=== PATIENT | male | born 1955 | race Hispanic/Latino ===

== ENCOUNTER 2019-03-31 17:38 | Observation (INO) | payer BC ==
--- OUTSIDE RECORDS SUMMARY | 2019-03-31 17:40 | XMS REPORT ---
:1955 [facility] Address [address] [place] [address] [address]. [address] [place] [address] Care Team Providers Name Role Phone Unavailable Unavailable Unavailable Problems This patient has no known problems. Allergies, Adverse Reactions, Alerts This patient has no known allergies or adverse reactions. Medications This patient has no known medications.
[2019-03-31] MEDS ORDERED: ONDANSETRON 4 MG/2 ML VIAL ONE (18:29)
[2019-03-31] MEDS ORDERED: NA CHLORIDE 0.9% 1,000 ML ONE ×2 (18:29→21:14)
[2019-03-31 18:30] LABS: Absolute Lymphocytes (CBC) 1.2 K/uL (0.7-4.9); Absolute Monocytes 0.7 K/uL (0.1-1.3); Absolute Neutrophil 8.9 K/uL (1.8-8.0); Basophils % 0.4 % (0-1.3); Eosinophils % 3.1 % (0-4.4); Hematocrit 47.8 % (39.6-49.0); MPV 9.8 fL (7.6-11.3); Monocytes % 6.5 % (3.3-12.3); RBC Red Blood Cell Count 5.22 M/uL (4.33-5.43)
[2019-03-31 18:44] LABS: Bilirubin Direct 0.2 mg/dL (0-0.2); Bilirubin Total 0.6 mg/dL (0.2-1.0); Potassium 4.4 mmol/L (3.5-5.1); Protein, Total 7.9 g/dL (6.4-8.2)
--- NOTE | 2019-03-31 19:31 | RAD REPORT ---
EXAM DESCRIPTION: CT - Abdomen Pelvis Wo Contrast - 03/31/2019 7:08 pm CLINICAL HISTORY: Abdominal pain diarrhea COMPARISON: None TECHNIQUE: Computed axial tomography of the abdomen and pelvis was obtained. IV and oral contrast we re not requested. All CT scans are performed using dose optimization technique as appropriate and may include automated exposure control or mA/KV adjustment according to patient size. FINDINGS: The evaluation of solid organs, vessels and bowel is limited secondary to the lack of con trast administration. The liver, spleen, pancreas, and adrenals appear grossly normal. Tiny bilateral nonobstructing renal calculi The appendix is normal. There is no evidence of diverticulitis. Small umbilical hernia. A small portion of small bowel protrudes through the hernia. IMPRESSION: Tiny bilateral nonobstructing renal calculi Small umbilical hernia containing a small portion of nondilated small bowel
--- NOTE | 2019-03-31 20:24 | P.HP ---
Certification for Inpatient Patient admitted to: Observation With expected LOS: <2 Midnights Practitioner: I am a practitioner with admitting privileges, knowledge of patient current condition, hospital course, and medical plan of care. Services: Services provided to patient in accordance with Admission requirements found in Title 42 Section 412.3 of the Code of Federal Regulations Patient History Date of Service: 03/31/19 Reason for admission: acute gastroenteritis, acute renal injury History of Present Illness: Mr Lan is a 63 years old male with history of DM II, HTN who start about 3 days ago with diarrhea. Later he has had nausea and vomiting as well. He also had fever episodes 100.4F at home. Despite his symptoms, he was able to keep some food and liquids down. At arrival, he was afebrile. Lab work shows leukocytosis 11.3K, Creatinine elevated 2.71. According to the patient he has not renal problems. CT abd/pelivs without acute abnormalities. Incidentally found bilateral non-obstructive kidney stones and small umbilical hernia. In ED the patient was afebrile, BP 103/67, tachycardic 103 bpm. Home medications list reviewed: Yes - Past Medical/Surgical History -: HTN -: DM II Past Surgical History: Reviewed- Non-Contributory - Family History Family History: Reviewed- Non-Contributory - Social History Smoking Status: Former smoker Alcohol use: No CD- Drugs: No Place of Residence: Home Review of Systems 10-point ROS is otherwise unremarkable Physical Examination - Physical Exam General: Alert, In no apparent distress HEENT: Atraumatic, PERRLA, Mucous membr. moist/pink, EOMI, Sclerae nonicteric Neck: Supple, 2+ carotid pulse no bruit, No LAD, Without JVD or thyroid abnormality Respiratory: Clear to auscultation bilaterally, Normal air movement Cardiovascular: Regular rate/rhythm, Normal S1 S2 Gastrointestinal: Normal bowel sounds, No tenderness Musculoskeletal: No tenderness Integumentary: No rashes Neurological: Normal speech, Normal strength at 5/5 x4 extr, Normal tone, Normal affect Lymphatics: No axilla or inguinal lymphadenopathy - Studies Laboratory Data (last 24 hrs) 03/31/19 18:22: Creatinine 2.73 H 03/31/19 18:22: WBC 11.3 H, Hgb 15.7, Hct 47.8, Plt Count 245 03/31/19 18:22: Sodium 138, Potassium 4.4, BUN 41 H, Creatinine 2.71 H, Glucose 201 H, Total Bilirubin 0.6, AST 44 H, ALT 68, Alkaline Phosphatase 113, Lipase 138 Assessment and Plan - Problems (Diagnosis) (1) Acute gastroenteritis Current Visit: Yes Status: Acute (2) Acute renal injury Current Visit: Yes Status: Acute (3) Diabetes mellitus Current Visit: Yes Status: Acute Qualifiers: Diabetes mellitus type: type 2 Diabetes mellitus alf insulin use: without rat exterminator use Diabetes mellitus complication status: with unspecified complications Qualified Code(s): E11.8 - Type 2 diabetes mellitus with unspecified complications (4) HTN (hypertension) Current Visit: Yes Status: Acute Qualifiers: Hypertension type: essential hypertension Qualified Code(s): I10 - Essential (primary) hypertension - Plan The patietn will be admitted to the hospital due to acute renal injury, likely secondary to volume depletion due to acute ganstroenteritis. Will continue with IV fluids, and symptomatic medication. Will check lab works in AM to evaluate renla function progress. - Advance Directives Does patient have a Living Will: No Does patient have a Durable POA for Healthcare: No - Code Status/Comfort Care Code Status Assessed: Yes Code Status: Full Code
--- NOTE | 2019-03-31 20:29 | ER ---
Nurse's Notes [facility] Name: Caryl Lan Sr Age: 63 yrs Sex: Male : 1955 Arrival Date: 03/31/2019 Time: 17:41 Bed 19 Private MD: Chip Larios Diagnosis: Dehydration;Vomiting;Diarrhea, unspecified;Acute Kidney Injury Presentation: 03/31 17:42 Presenting complaint: Patient states: diarrhea x 1 week and vomiting started last sv night. Denies abd pain. Transition of care: patient was not received from another setting of care. Onset of symptoms was March 24, 2019. Care prior to arrival: None. 17:42 Method Of Arrival: Ambulatory sv 17:42 Acuity: DAISHA 3 sv 17:44 Initial Sepsis Screen: Does the patient meet any 2 criteria? HR > 90 bpm. Does the sv patient have a suspected source of infection? No. Patient's initial sepsis screen is negative. 21:23 Risk Assessment: Do you want to hurt yourself or someone else? Patient reports no aj desire to harm self or others. Historical: - Allergies: 17:44 No Known Allergies; sv - PMHx: 17:44 Diabetes - NIDDM; Hypertension; sv - PSHx: 17:44 leg; sv 17:44 Knee surgery; sv - Immunization history:: Adult Immunizations up to date. - Social history:: Smoking status: Patient/guardian denies using tobacco. - Ebola Screening: : Patient negative for fever greater than or equal to 101.5 degrees Fahrenheit, and additional compatible Ebola Virus Disease symptoms Patient denies exposure to infectious person Patient denies travel to an Ebola-affected area in the 21 days before illness onset No symptoms or risks identified at this time. Screenin:25 Abuse screen: Denies threats or abuse. Denies injuries from another. Nutritional aj screening: No deficits noted. Tuberculosis screening: No symptoms or risk factors identified. Fall Risk None identified. Assessment: 18:25 General: Appears in no apparent distress. comfortable, Behavior is calm, cooperative, aj appropriate for age. Pain: Denies pain. Neuro: Level of Consciousness is awake, alert, obeys commands, Oriented to person, place, time, situation, Appropriate for age. Respiratory: Airway is patent Respiratory effort is even, unlabored, Respiratory pattern is regular, symmetrical. GI: Reports diarrhea. Derm: Skin is intact, is healthy with good turgor, Skin is pink, warm \T\ dry. normal. 21:22 Reassessment: Patient appears in no apparent distress at this time. No changes from aj previously documented assessment. Patient and/or family updated on plan of care and expected duration. Pain level reassessed. Patient is alert, oriented x 3, equal unlabored respirations, skin warm/dry/pink. Patient states feeling better. Patient states symptoms have improved. Vital Signs: 17:44 BP 103 / 67; Pulse 103; Resp 16; Temp 98.6; Pulse Ox 97% ; Weight 101.6 kg; Height 5 sv ft. 6 in. (167.64 cm); Pain 0/10; 20:05 BP 121 / 87; Pulse 87; Resp 20; Pulse Ox 97% on R/A; aj 21:22 BP 123 / 78; Pulse 79; Resp 19; Pulse Ox 99% on R/A; aj 17:44 Body Mass Index 36.15 (101.60 kg, 167.64 cm) ED Course: 17:41 Patient arrived in ED. mr 17:41 Chip Larios MD is Private Physician. mr 17:43 Triage completed. sv 17:45 Deloris Dawson, VARINDER is Primary Nurse. aj 17:45 Arm band placed on. sv 18:04 Virgilio Mendez PA is PHCP. [facility] 18:04 Jaret Farris MD is Attending Physician. [facility] 18:25 Patient has correct armband on for positive identification. 18:25 Initial lab(s) drawn, by in, sent to lab. Inserted saline lock: 18 gauge in right antecubital area, using aseptic technique. Blood collected. 19:07 CT completed. Patient tolerated procedure well. Patient moved to RI. Patient moved back mt from CT. 19:09 CT Abd/Pelvis - Without Cont In Process Unspecified. EDMS 20:29 Hayden Calderon MD is Hospitalizing Provider. [facility] 21:22 No provider procedures requiring assistance completed. Patient admitted, IV remains in place. intact. Administered Medications: 18:27 Drug: Zofran 4 mg Route: IVP; Site: right forearm; aj 19:51 Follow up: Response: No adverse reaction 18:28 Drug: NS 0.9% 1000 ml Route: IV; Rate: 1 bolus; Site: right antecubital; sedrick 21:24 Follow up: Response: No adverse reaction; IV Status: Completed infusion; IV Intake: aj 1000ml 21:04 Drug: NS 0.9% 500 ml Route: IV; Rate: bolus; Site: right antecubital; aj 21:24 Follow up: Response: No adverse reaction; IV Status: Completed infusion; IV Intake: aj 500ml Intake: 21:24 IV: 500ml; Total: 500ml. aj 21:24 IV: 1000ml; Total: 1500ml. sedrick Outcome: 20:29 Decision to Hospitalize by Provider. abdiel 21:22 Admitted to Med/surg accompanied by tech, via wheelchair, room 412, Report called to sedrick Baltazar 21:22 Condition: good 21:22 Instructed on the need for admit. 21:27 Patient left the ED. sedrick Signatures: Dispatcher [employer] Christiana Cox RN RN sv Myers, Amanda, RN RN aj Mickail, Joel, PA PA jmm Rivera, Mary mr Jordan, Nathan nj
--- NOTE | 2019-03-31 20:29 | EDPHYS ---
Physician Documentation [facility] Name: Caryl Lan Sr Age: 63 yrs Sex: Male : 1955 Arrival Date: 03/31/2019 Time: 17:41 Bed 19 Private MD: Chip Larios ED Physician Jaret Farris HPI: 03/31 18:12 This 63 yrs old Male presents to ER via Ambulatory with complaints of Diarrhea.jmm 18:12 The patient presents to the emergency department with nausea, vomiting, diarrhea. jmm Onset: The symptoms/episode began/occurred gradually, 3 day(s) ago. Possible causes: unknown. The symptoms are aggravated by nothing. The symptoms are alleviated by nothing. Associated signs and symptoms: Pertinent negatives: abdominal pain, fever. This is a 63 year old male with a history of dm, htn that presents to the ED with complaints of vomiting, diarrhea beginning 3 days ago. Patient states developing vomiting yesterday with 10 to 12 episodes of diarrhea last night. Patient states he has been unable to urinate since yesterday. . Historical: - Allergies: 17:44 No Known Allergies; sv - PMHx: 17:44 Diabetes - NIDDM; Hypertension; sv - PSHx: 17:44 leg; sv 17:44 Knee surgery; sv - Immunization history:: Adult Immunizations up to date. - Social history:: Smoking status: Patient/guardian denies using tobacco. - Ebola Screening: : Patient negative for fever greater than or equal to 101.5 degrees Fahrenheit, and additional compatible Ebola Virus Disease symptoms Patient denies exposure to infectious person Patient denies travel to an Ebola-affected area in the 21 days before illness onset No symptoms or risks identified at this time. ROS: 18:12 Constitutional: Negative for fever, chills, and weight loss, Cardiovascular: Negative jmm for chest pain, palpitations, and edema, Respiratory: Negative for shortness of breath, cough, wheezing, and pleuritic chest pain. 18:12 Abdomen/GI: Positive for vomiting, diarrhea. 18:12 All other systems are negative. Exam: 18:12 Constitutional: This is a well developed, well nourished patient who is awake, alert, jmm and in no acute distress. Head/Face: atraumatic. Eyes: EOMI, no conjunctival erythema appreciated ENT: Moist Mucus Membranes Neck: Trachea midline, Supple Chest/axilla: Normal chest wall appearance and motion. Cardiovascular: Regular rate and rhythm. No edema appreciated Respiratory: Normal respirations, no respiratory distress appreciated 18:12 Abdomen/GI: Inspection: abdomen appears normal, Bowel sounds: normal, Palpation: abdomen is soft and non-tender, in all quadrants. 18:12 Back: ROM is normal. 18:12 Musculoskeletal/extremity: ROM: intact in all extremities. 18:12 Skin: Appearance: Color: normal in color. 18:12 Neuro: Orientation: is normal, Mentation: is normal, Memory: is normal. 18:12 Psych: Behavior/mood is pleasant, cooperative. Vital Signs: 17:44 BP 103 / 67; Pulse 103; Resp 16; Temp 98.6; Pulse Ox 97% ; Weight 101.6 kg; Height 5 sv ft. 6 in. (167.64 cm); Pain 0/10; 20:05 BP 121 / 87; Pulse 87; Resp 20; Pulse Ox 97% on R/A; aj 21:22 BP 123 / 78; Pulse 79; Resp 19; Pulse Ox 99% on R/A; aj 17:44 Body Mass Index 36.15 (101.60 kg, 167.64 cm) sv MDM: 18:12 Patient medically screened. [facility] 19:50 Data reviewed: vital signs, nurses notes. Counseling: I had a detailed discussion with abdiel the patient and/or guardian regarding: the historical points, exam findings, and any diagnostic results supporting the discharge/admit diagnosis, radiology results, the need for further work-up and treatment in the hospital, to return to the emergency department if symptoms worsen or persist or if there are any questions or concerns that arise at home. ED course: I discussed the patient with Dr. Calderon whom accepted admission. Will admit the patient for observation. 03/31 18:12 Order name: Basic Metabolic Panel; Complete Time: 18:49 [facility] 03/31 18:12 Order name: CBC with Diff; Complete Time: 18:49 [facility] 03/31 18:12 Order name: Creatinine for Radiology; Complete Time: 18:49 [facility] 03/31 18:12 Order name: Hepatic Function; Complete Time: 18:49 [facility] 03/31 18:12 Order name: Lipase; Complete Time: 18:49 [facility] 03/31 18:50 Order name: CT Abd/Pelvis - Without Cont; Complete Time: 19:42 [facility] 03/31 18:12 Order name: IV Saline Lock; Complete Time: 18:27 [facility] 03/31 18:12 Order name: Labs collected and sent; Complete Time: 18:27 [facility] 03/31 20:11 Order name: Urine Dipstick-Ancillary (obtain specimen); Complete Time: 21:25 [facility] Administered Medications: 18:27 Drug: Zofran 4 mg Route: IVP; Site: right forearm; aj 19:51 Follow up: Response: No adverse reaction aj 18:28 Drug: NS 0.9% 1000 ml Route: IV; Rate: 1 bolus; Site: right antecubital; aj 21:24 Follow up: Response: No adverse reaction; IV Status: Completed infusion; IV Intake: aj 1000ml 21:04 Drug: NS 0.9% 500 ml Route: IV; Rate: bolus; Site: right antecubital; aj 21:24 Follow up: Response: No adverse reaction; IV Status: Completed infusion; IV Intake: aj 500ml Disposition: 03/31/19 20:29 Hospitalization ordered by Hayden Calderon for Observation. Preliminary diagnosis are Dehydration, Vomiting, Diarrhea, unspecified, Acute Kidney Injury. - Bed requested for Telemetry/MedSurg (observation). - Status is Observation. aj - Condition is Stable. - Problem is new. - Symptoms are unchanged. UTI on Admission? No Addendum: 04/03/2019 07:05 Co-signature as Attending Physician, Jaret Farris MD I agree with the assessment and [facility] plan of care. Signatures: Dispatcher [employer] EDMS Christiana Cantrell RN Deloris Smith RN RN aj Rittger, Kevin, MD MD kdr Mickail, Joel, PA PA [facility] Daniela Neely RN RN cg Corrections: (The following items were deleted from the chart) 03/31 20:24 19:50 ED course: I discussed the patient with Dr. Calderon whom accepted admission. [facility] States he will determine obs vs inpatient after evaluating the patient. . [facility] 20:30 20:29 Hospitalization Ordered by Hayden Calderon MD for Observation. Preliminary cg diagnosis is Dehydration; Vomiting; Diarrhea, unspecified; Acute Kidney Injury. Bed requested for Telemetry/MedSurg (observation). Status is Observation. Condition is Stable. Problem is new. Symptoms are unchanged. UTI on Admission? No. jmm 21:27 20:30 03/31/2019 20:29 Hospitalization Ordered by Hayden Calderon MD for Observation. aj Preliminary diagnosis is Dehydration; Vomiting; Diarrhea, unspecified; Acute Kidney Injury. Bed requested for Telemetry/MedSurg (observation). Status is Observation. Condition is Stable. Problem is new. Symptoms are unchanged. UTI on Admission? No. cg
[2019-03-31] MEDS ORDERED: ONDANSETRON 4 MG/2 ML VIAL IV PRN (21:43)
[2019-03-31] MEDS ORDERED: ACETAMINOPHEN 500 MG TAB PO PRN (21:43)
[2019-03-31] MEDS: INSULIN -REGULAR HUMAN 50 UNIT/0.5 ML ML SQ SCH (21:43)
[2019-03-31 22:09] VITALS: BMI 35.4
[2019-03-31] MEDS: NA CHLORIDE 0.9% 1,000 ML IV SCH (22:53)
[2019-03-31 23:03] VITALS: O2SAT 99
[2019-04-01 03:28] LABS: Absolute Lymphocytes (CBC) 1.6 K/uL (0.7-4.9); Absolute Monocytes 0.7 K/uL (0.1-1.3); Absolute Neutrophil 5.7 K/uL (1.8-8.0); Basophils % 0.5 % (0-1.3); Eosinophils % 5.4 % (0-4.4); Hematocrit 39.6 % (39.6-49.0); MPV 9.8 fL (7.6-11.3); Monocytes % 8.3 % (3.3-12.3); RBC Red Blood Cell Count 4.38 M/uL (4.33-5.43)
[2019-04-01] MEDS: INSULIN -REGULAR HUMAN 50 UNIT/0.5 ML ML SQ SCH ×4 (07:30→21:00)
[2019-04-01] MEDS: NA CHLORIDE 0.9% 1,000 ML IV SCH ×3 (08:22→21:43)
[2019-04-01] MEDS: HEPARIN 5000 UNIT/ML 1 ML VIAL SQ SCH ×3 (08:23→21:00)
[2019-04-01 10:54] LABS: Urine Appearance CLEAR; Urine Bilirubin NEGATIVE (NEG); Urine Blood NEGATIVE (NEG); Urine Color YELLOW; Urine Glucose NEGATIVE (NEG); Urine Protein NEGATIVE (NEG); Urine Specific Gravity 1.015 (1.005-1.030); Urine Urobilinogen 0.2 mg/dL (0.2-1.0)
[2019-04-01 11:01] LABS: Urine Microscopic Reflex ORDER UMIC
[2019-04-01 11:18] LABS: Urine Bacteria <20 /HPF (NONE SEEN); Urine Culture Reflex Order REFLEXED; Urine Mucus LIGHT /HPF (NONE SEEN); Urine RBC NONE SEEN /HPF (NONE SEEN)
--- NOTE | 2019-04-01 12:35 | P.PN ---
Subjective Date of Service: 04/01/19 Chief Complaint: acute gastroenteritis, acute renal injury Subjective: Improving Patient states he feels significantly better. Still having diarrhea however not as loose. Patient able to tolerate clear liquids. Pain has subsided. No further vomiting. Review of Systems 10-point ROS is otherwise unremarkable Gastrointestinal: As per HPI Physical Examination - Vital Signs Temperature: 97.4 F Blood Pressure: 104/64 Pulse: 73 Respirations: 16 Pulse Ox (%): 98 - Physical Exam General: Alert, In no apparent distress, Oriented x3, Obese, Other (Ill- appearing male) HEENT: Atraumatic, PERRLA, EOMI Neck: Supple, JVD not distended Respiratory: Clear to auscultation bilaterally, Normal air movement Cardiovascular: No edema, Normal pulses, Regular rate/rhythm, Normal S1 S2 Gastrointestinal: Normal bowel sounds, Soft and benign, Non-distended, Tenderness Musculoskeletal: No tenderness Integumentary: No rashes, No erythema, No cyanosis Neurological: Normal speech, Normal strength at 5/5 x4 extr, Normal tone, Normal affect - Studies Laboratory Data (last 24 hrs) 03/31/19 18:22: Creatinine 2.73 H 03/31/19 18:22: WBC 11.3 H, Hgb 15.7, Hct 47.8, Plt Count 245 03/31/19 18:22: Sodium 138, Potassium 4.4, BUN 41 H, Creatinine 2.71 H, Glucose 201 H, Total Bilirubin 0.6, AST 44 H, ALT 68, Alkaline Phosphatase 113, Lipase 138 Microbiology Data (last 24 hrs): C. difficile pending Imagings Data: CLINICAL HISTORY: Abdominal pain diarrhea COMPARISON: None TECHNIQUE: Computed axial tomography of the abdomen and pelvis was obtained. IV and oral contrast were not requested. All CT scans are performed using dose optimization technique as appropriate and may include automated exposure control or mA/KV adjustment according to patient size. FINDINGS: The evaluation of solid organs, vessels and bowel is limited secondary to the lack of contrast administration. The liver, spleen, pancreas, and adrenals appear grossly normal. Tiny bilateral nonobstructing renal calculi The appendix is normal. There is no evidence of diverticulitis. Small umbilical hernia. A small portion of small bowel protrudes through the hernia. IMPRESSION: Tiny bilateral nonobstructing renal calculi Small umbilical hernia containing a small portion of nondilated small bowel Medications List Reviewed: Yes Assessment And Plan - Current Problems (Diagnosis) (1) Acute gastroenteritis Current Visit: Yes Status: Acute (2) Acute kidney injury Current Visit: Yes Status: Acute (3) Nephrolithiasis Current Visit: Yes Status: Acute (4) Diabetes mellitus Current Visit: Yes Status: Acute Qualifiers: Diabetes mellitus type: type 2 Diabetes mellitus skilled nursing insulin use: without skilled nursing use Diabetes mellitus complication status: with unspecified complications Qualified Code(s): E11.8 - Type 2 diabetes mellitus with unspecified complications (5) HTN (hypertension) Current Visit: Yes Status: Acute Qualifiers: Hypertension type: essential hypertension Qualified Code(s): I10 - Essential (primary) hypertension (6) Morbid obesity due to excess calories Current Visit: Yes Status: Acute - Plan Continue IV fluid hydration. C. diff assay pending Monitor creatinine. Avoid NSAIDs Advance diet if C. diff is negative Likely Dc in the next 24 hr pending clinical improvement DVT prophylaxis Discharge Plan: Home Plan to discharge in: 24 Hours
[2019-04-01] MEDS ORDERED: GLIMEPIRIDE 2 MG PO SCH (17:00)
[2019-04-02 05:39] LABS: Potassium 3.7 mmol/L (3.5-5.1)
[2019-04-02] MEDS ORDERED: PANTOPRAZOLE 40MG TABLET PO SCH (06:30)
[2019-04-02] MEDS: INSULIN -REGULAR HUMAN 50 UNIT/0.5 ML ML SQ SCH (07:30)
[2019-04-02] MEDS ORDERED: POTASSIUM 25 MEQ EFFERV TAB PO ONE (07:48)
[2019-04-02] MEDS ORDERED: D50W 25 GM/50 ML SYRINGE IV PRN (08:02)
[2019-04-02] MEDS ORDERED: GLUCAGON 1 MG/VIAL IM PRN (08:02)
[2019-04-02] MEDS: NA CHLORIDE 0.9% 1,000 ML IV SCH (08:43)
[2019-04-02] MEDS: HEPARIN 5000 UNIT/ML 1 ML VIAL SQ SCH (08:44)
[2019-04-02 08:51] VITALS: BP 114/66; TEMP 97.8
[2019-04-02] MEDS ORDERED: MOMETASONE FUROATE NS SCH (09:00)
[2019-04-02] MEDS ORDERED: AMLODIPINE 10 MG TAB PO SCH (09:00)
--- NOTE | 2019-04-02 13:24 | P.DS ---
Admission Date: 03/31/19 Discharge Date: 04/02/19 Disposition: ROUTINE DISCHARGE Discharge Condition: GOOD Reason for Admission: acute gastroenteritis, acute renal injury - Problems (1) Acute gastroenteritis Status: Acute (2) Acute kidney injury Status: Acute (3) Nephrolithiasis Status: Acute (4) Diabetes mellitus Status: Acute Qualifiers: Diabetes mellitus type: type 2 Diabetes mellitus chcf insulin use: without chcf use Diabetes mellitus complication status: with unspecified complications Qualified Code(s): E11.8 - Type 2 diabetes mellitus with unspecified complications (5) HTN (hypertension) Status: Acute Qualifiers: Hypertension type: essential hypertension Qualified Code(s): I10 - Essential (primary) hypertension (6) Morbid obesity due to excess calories Status: Acute Brief History of Present Illness: From H&P Mr Lan is a 63 years old male with history of DM II, HTN who start about 3 days ago with diarrhea. Later he has had nausea and vomiting as well. He also had fever episodes 100.4F at home. Despite his symptoms, he was able to keep some food and liquids down. At arrival, he was afebrile. Lab work shows leukocytosis 11.3K, Creatinine elevated 2.71. According to the patient he has not renal problems. CT abd/pelivs without acute abnormalities. Incidentally found bilateral non-obstructive kidney stones and small umbilical hernia. In ED the patient was afebrile, BP 103/67, tachycardic 103 bpm. Hospital Course: Pt is a 63-year-old male with diabetes comes in with acute gastroenteritis type symptoms. Patient was started on IV fluids. He also had acute kidney injury. His cranial improved. C. diff was ruled out. Patient's symptoms improved. His diet was slowly advanced and he was able to tolerate a GI soft diet. CT scan of the abdomen did not show any acute changes. Was found to have incidental nephrolithiasis which were nonobstructing. Patient's symptoms improved he had no complications during this present. You was able to ambulate and tolerate his diet. No further nausea vomiting or diarrhea. Patient was stable for discharge. Vital Signs/Physical Exam: Temp Pulse Resp BP Pulse Ox 97.8 F 79 18 114/66 99 04/02/19 08:00 04/02/19 08:00 04/02/19 08:00 04/02/19 08:00 04/02/19 08:00 General: Alert, In no apparent distress, Oriented x3, Obese HEENT: Atraumatic, PERRLA, EOMI Neck: Supple, JVD not distended Respiratory: Clear to auscultation bilaterally, Normal air movement Cardiovascular: No edema, Normal pulses, Regular rate/rhythm, Normal S1 S2 Gastrointestinal: Normal bowel sounds, Soft and benign, Non-distended, No tenderness Musculoskeletal: No tenderness Integumentary: No rashes Neurological: Normal speech, Normal tone, Normal affect Laboratory Data at Discharge: WBC 8.5 K/uL (4.3-10.9) D 04/01/19 03:07 Hgb 13.7 g/dL (13.6-17.9) 04/01/19 03:07 Hct 39.6 % (39.6-49.0) D 04/01/19 03:07 Plt Count 187 K/uL (152-406) D 04/01/19 03:07 Sodium 145 mmol/L (136-145) 04/02/19 04:50 Potassium 3.7 mmol/L (3.5-5.1) 04/02/19 04:50 BUN 14 mg/dL (7-18) D 04/02/19 04:50 Creatinine 1.08 mg/dL (0.55-1.3) 04/02/19 04:50 Glucose 71 mg/dL (74-106) L 04/02/19 04:50 Total Bilirubin 0.6 mg/dL (0.2-1.0) 03/31/19 18:22 AST 44 U/L (15-37) H 03/31/19 18:22 ALT 68 U/L (12-78) 03/31/19 18:22 Alkaline Phosphatase 113 U/L (45-117) 03/31/19 18:22 Lipase 138 U/L (73-393) 03/31/19 18:22 Home Medications: Amlodipine [Norvasc*] 10 mg PO DAILY 04/01/19 Glimepiride 2 mg PO BIDWM 04/01/19 Liraglutide [Victoza 2-Endy] 1.8 mg SQ DAILY 04/01/19 Metformin HCl [Metformin HCl ER] 500 mg PO BID 04/01/19 Mometasone Furoate [Nasonex] 1 spray NS BID 04/01/19 Omeprazole Magnesium [Prilosec Otc] 1 tab PO DAILY 04/01/19 Ondansetron [Zofran (Odt)*] 8 mg PO Q8HR PRN 04/01/19 Patient Discharge Instructions: f/up w PCP in 2-3 days. Return to ER for worsening condition Diet: ADA
== END 2019-04-02 11:45 | disposition home or self-care (01) ==
LOC: ER 17:38 → ERHOLD 20:32 → 4TH 21:08
PROVIDERS: ADMIT Internal Medicine; ATTEND Internal Medicine
DX: K52.9 Noninfective gastroenteritis and colitis, unspecified (principal); N17.9 Acute kidney failure, unspecified; N20.0 Calculus of kidney; E11.9 Type 2 diabetes mellitus without complications; I10 Essential (primary) hypertension; E66.01 Morbid (severe) obesity due to excess calories; Z68.35 Body mass index [BMI] 35.0-35.9, adult
CPT/HCPCS: 36415; 74176; 80048; 80076; 81003; 81015; 82962; 83036; 83690; 85025; 87077; 87086; 87088; 87186; 87493; 96361; 96374; 99285; G0378; J1644; J2405; J7030

== ENCOUNTER 2021-01-18 12:23 | Emergency (ER) | payer BC, OTHER ==
--- OUTSIDE RECORDS SUMMARY | 2021-01-18 12:27 | XMS REPORT | Continuity of Care Document ---
:1955 Author Organization [facility] t Address [address] [place] [address] Care Team Providers Name Role Phone Roland Raphael DO Attending Clinician Charli Larios MD Attending Clinician Stewart ORDONEZ Attending Clinician GERARDO Attending Clinician Unavailable Problems This patient has no known problems. Allergies, Adverse Reactions, Alerts This patient has no known allergies or adverse reactions. Medications Ordered Filled Start Stop Current Ordering Indication Dosage Frequency Signature Comments Components Source Medication Medication Date Date Medication? Clinician (SIG) Name Name Tadalafil Tadalafil 2020- No Nathaly [address] [facility] 06[facility] Tamsulosin Tamsulosin 2020- No Nathaly [address] [facility] HCl HCl 06-25 [facility]00 [facility] 00 :00 l [facility] Albuterol Albuterol Yes Nathaly [address] [facility] Sulfate HFA Sulfate HFA 2-17 Espy needed [facility] - 00:[facility]: [facility] 00 l [facility] losartan losartan Yes Nathaly not [facility] defined [facility] - [facility] Glimepiride Glimepiride Yes Nathaly [address] [facility] with [facility] - breakfast Memoria or the l first main Outpati meal of ent the day Clinics Losartan Losartan Yes Nathaly 1/[address] [facility] Potassium Potassium J [facility] dailyfor [facility] - hypertensi [facility] on l Outpati ent Clinics NyQuil NyQuil Yes Nathaly not [facility] Victoza Victoza Yes Nathaly as [facility] directed [facility] Metformin Metformin Yes Nathaly [address] [facility] HCl HCl J [facility] with a [facility] - meal [facility] ent [facility]ics Zofran Zofran Yes Nathaly [address] [facility] Amlodipine Amlodipine Yes Nathaly [address] [facility] Besylate Besylate J Carlos Viola es - [facility] l Outpat[facility] ent Clinics Procedures This patient has no known procedures. Encounters Start End Encounter Admission Attending Care Care Encounter Source Date/Time Date/Time Type Type Clinicians Facility Department ID 2021-01-06 2021-01-06 [id number] 00:00:00 00:00:00 Outreach [facility] [id number] [facility] [id number] PAVILLION [id number] 2020-12-26 2020-12-[id number] 00:00:00 00:00:00 [id number] [facility] [id number] Professio [phone] [place] [address] [address] 2020-12-24 2020-12-24 [id number] 00:00:00 00:00:00 [facility] [id number] [facility] [place] [id number] Professio [phone] [place] [address] [address] 2020-12-20 2020-12-20 Refill [facility] [id number] 00:00:00 00:00:00 [facility] [id number] [facility] [place] [id number] Professio [phone] [place] [address] 2020-12-03 2020-12-03 [facility] [id number] 00:00:00 00:00:00 [facility] [id number] [facility] [place] [id number] Professio [phone] n[place] 044 [address] 2020-10-12 2020-10-12 [facility] [id number] 00:00:00 00:00:00 [facility] [id number] [place] [id number] Professio [phone] n[place] 044 [address] One 2020-10-01 2020-10-01 Outpatient [facility] [id number] [facility] St 00:00:00 00:00:[address] [facility] Outpati ent Clinics 2020-09-23 2020-09-23 Outpatient [facility] [id number] [facility] St 00:00:00 00:00:00 [facility] Outpati ent Clinics 2020-09-09 2020-09-09 [facility] [id number] 07:41:57 08:20:39 Visit [facility] [id number] [facility] [place] [id number] Professio [phone] nal 0[address] 2020-06-25 2020-06-25 [facility] [id number] 14:30:00 14:30:00 t Specialty/U Irene kes - Specialty rology [facility] l Clinic Outpati ent Clinics 2020-06-25 2020-06-25 [facility] [id number] [address] [place] [address] 00:00:00 00:00:00 [facility] [address] 2020-06-04 2020-06-04 [facility] [id number] [address] [place] [address] 00:00:00 00:00:00 [facility] [address] 2020-06-04 2020-06-04 [facility] [id number] [address] [place] [address] 00:00:00 00:00:00 [facility] [address] Results This patient has no known results.
[2021-01-18] MEDS ORDERED: ACETAMINOPHEN 500 MG TAB ONE (13:26)
--- NOTE | 2021-01-18 13:54 | RAD REPORT ---
EXAM DESCRIPTION: RAD - Chest Single View - 01/18/2021 1:31 pm CLINICAL HISTORY: SOB Chest pain. COMPARISON: Chest Pa And Lat (2 Views) dated 12/18/2018 FINDINGS: Portable technique limits examination quality. The lungs are underinflated but grossly clear. The heart is normal in size. No displaced fractures.Ri ght axillary alton dissection clips. IMPRESSION: No acute intrathoracic process suspected.
--- NOTE | 2021-01-18 14:18 | EDPHYS ---
Physician Documentation [facility] Name: Caryl Lan Sr Age: 65 yrs Sex: Male : 1955 Arrival Date: 01/18/2021 Time: 12:25 Bed 17 Private MD: Chip Larios ED Physician Ronald Chambers HPI: 01/18 13:00 This 65 yrs old Male presents to ER via Wheelchair with complaints of cp Decreased Appetite, Headache, covid+. Historical: - Allergies: 12:38 No Known Allergies; ca1 - PMHx: 12:38 Diabetes - NIDDM; Hypertension; ca1 - PSHx: 12:38 leg; Knee surgery; ca1 - Immunization history:: Pneumococcal vaccine is not up to date, Flu vaccine is up to date. - Social history:: Smoking status: Patient denies any tobacco usage or history of. ROS: 13:05 Constitutional: Positive for body aches, Negative for chills, fever, poor PO intake. cp 13:05 Eyes: Negative for injury, pain, redness, and discharge. cp 13:05 Cardiovascular: Negative for chest pain, edema, palpitations. 13:05 Respiratory: Positive for cough, with no reported sputum, Negative for shortness of breath, wheezing. 13:05 Abdomen/GI: Positive for diarrhea, Negative for abdominal pain, nausea and vomiting. 13:05 Neuro: Positive for headache, Negative for altered mental status, weakness. 13:05 All other systems are negative. Exam: 13:15 Constitutional: The patient appears in no acute distress, alert, awake, cp non-diaphoretic, non-toxic, well developed, well nourished, obese. 13:15 Head/Face: Normocephalic, atraumatic. cp 13:15 Eyes: Periorbital structures: appear normal, Conjunctiva: normal, no exudate, no injection, Sclera: no appreciated abnormality, Lids and lashes: appear normal, bilaterally. 13:15 ENT: External ear(s): are unremarkable, Nose: is normal, Mouth: Lips: moist, Oral mucosa: moist, Posterior pharynx: Airway: no evidence of obstruction, patent. 13:15 Neck: ROM/movement: is normal, is supple, no meningismus, no nuchal rigidity. 13:15 Chest/axilla: Inspection: normal, Palpation: is normal, no crepitus, no tenderness. 13:15 Cardiovascular: Rate: normal, Rhythm: regular, Edema: is not appreciated, JVD: is not appreciated. 13:15 Respiratory: the patient does not display signs of respiratory distress, Respirations: normal, no use of accessory muscles, no retractions, labored breathing, is not present, Breath sounds: are clear throughout, no decreased breath sounds, no stridor, no wheezing. 13:15 Abdomen/GI: Inspection: abdomen appears normal, Bowel sounds: active, all quadrants, Palpation: abdomen is soft and non-tender, in all quadrants. 13:15 Back: pain, is absent, ROM is normal. 13:15 Neuro: Orientation: to person, place \T\ time. Mentation: is normal, Motor: moves all fours, strength is normal. Vital Signs: 12:35 BP 108 / 66; Pulse 89; Resp 19 S; Temp 97.6(TE); Pulse Ox 98% on R/A; Weight 102.06 kg ca1 (R); Height 5 ft. 6 in. (167.64 cm) (R); Pain 6/10; 13:30 BP 125 / 64; Pulse 84; Resp 16; Pulse Ox 97% ; rb3 14:30 BP 128 / 62; Pulse 80; Resp 16; Pulse Ox 100% ; rb3 12:35 Body Mass Index 36.32 (102.06 kg, 167.64 cm) ca1 MDM: 12:39 Patient medically screened. carolyn 13:30 Differential diagnosis: bronchitis, pneumonia, sepsis, dehydration, respiratory cp distress. 14:17 Data reviewed: vital signs, nurses notes, radiologic studies, plain films. cp 14:17 Test interpretation: by ED physician or midlevel provider: plain radiologic studies. cp Counseling: I had a detailed discussion with the patient and/or guardian regarding: the historical points, exam findings, and any diagnostic results supporting the discharge/admit diagnosis, radiology results, to return to the emergency department if symptoms worsen or persist or if there are any questions or concerns that arise at home. ED course: VSS. Patient appears non-toxic and no signs of respiratory distress. Will discharge to home for continued monitoring. 01/18 13:43 Order name: Glucose, Ancillary Testing; Complete Time: 13:50 EDMS 03/20 12:59 Order name: XRAY Chest (1 view); Complete Time: 14:03 cp 01/18 12:59 Order name: Accucheck Blood Glucose; Complete Time: 15:00 cp 01/18 14:03 Order name: PO challenge; Complete Time: 15:00 cp Administered Medications: 13:13 Drug: Tylenol 1000 mg Route: PO; rb3 14:00 Follow up: Response: No adverse reaction; Pain is decreased rb3 Disposition: 01/19 01:19 Co-signature as Attending Physician, Ronald Chambers MD I agree with the assessment and [facility] plan of care. Disposition: 01/18/21 14:18 Discharged to Home. Impression: Coronavirus infection, unspecified. - Condition is Stable. - Discharge Instructions: COVID-19. - Prescriptions for Zithromax Z- Endy 250 mg Oral Tablet - take 1 tablet by ORAL route as directed for 5 days Day 1 - take two (2) tablets one time. Day 2, 3, 4 , 5 take one (1) tablet once daily.; 6 tablet. Albuterol Sulfate 90 mcg/actuation - inhale 1-2 puff by INHALATION route every 4-6 hours; 1 Inhaler. - Medication Reconciliation Form, Thank You Letter, Antibiotic Education, Prescription Opioid Use form. - Follow up: Chip Larios MD; When: 1 - 2 days; Reason: Recheck today's complaints. - Problem is new. - Symptoms have improved. Signatures: Dispatcher [employer] EDCO Ronald Chambers MD MD cha Calderon, Audri, RN RN aa5 Ronald Hernandez PA PA cp Toshia Patterson RN Caitlyn Hancock, RN RN rb3 Corrections: (The following items were deleted from the chart) 01/18 15:04 14:18 01/18/2021 14:18 Discharged to Home. Impression: Coronavirus infection, aa5 unspecified. Condition is Stable. Forms are Medication Reconciliation Form, Thank You Letter, Antibiotic Education, Prescription Opioid Use. Follow up: Chip Larios; When: 1 - 2 days; Reason: Recheck today's complaints. Problem is new. Symptoms have improved. cp
--- NOTE | 2021-01-18 14:18 | ER ---
Nurse's Notes [facility] Name: Caryl Lan Sr Age: 65 yrs Sex: Male : 1955 Arrival Date: 01/18/2021 Time: 12:25 Bed 17 Private MD: Chip Larios Diagnosis: Coronavirus infection, unspecified Presentation: 01/18 12:35 Chief complaint: Patient states: Covid+ 01/14/2021. S/S started 01/10/2021. Reports ca1 cough, congestion, fever, diarrhea, fatigue, SOB. Symptoms is getting worse. Coronavirus screen: Client reports previous positive COVID test result. Date of collection: January 14, 2021 Staff notified of need for isolation. Ebola Screen: Patient negative for fever greater than or equal to 101.5 degrees Fahrenheit, and additional compatible Ebola Virus Disease symptoms Patient denies exposure to infectious person. Patient denies travel to an Ebola-affected area in the 21 days before illness onset. No symptoms or risks identified at this time. Initial Sepsis Screen: Does the patient meet any 2 criteria? No. Patient's initial sepsis screen is negative. Does the patient have a suspected source of infection? No. Patient's initial sepsis screen is negative. Risk Assessment: Do you want to hurt yourself or someone else? Patient reports no desire to harm self or others. Onset of symptoms was January 14, 2021. 12:35 Method Of Arrival: Wheelchair ca1 12:35 Acuity: DAISHA 3 ca1 Triage Assessment: 12:50 Headache History: The patient has had previous headaches and this one is similar to rb3 previous episodes. Historical: - Allergies: 12:38 No Known Allergies; ca1 - PMHx: 12:38 Diabetes - NIDDM; Hypertension; ca1 - PSHx: 12:38 leg; Knee surgery; ca1 - Immunization history:: Pneumococcal vaccine is not up to date, Flu vaccine is up to date. - Social history:: Smoking status: Patient denies any tobacco usage or history of. Screenin:50 Abuse screen: Denies threats or abuse. Nutritional screening: decreased appetite . rb3 Tuberculosis screening: No symptoms or risk factors identified. Fall Risk None identified. Assessment: 12:50 General: Appears in no apparent distress. comfortable, Behavior is calm, cooperative, rb3 Reports fever for feeling ill for fatigue for Symptoms started on January 10, 2021. Pain: Complains of pain in bodyaches Pain currently is 5 out of 10 on a pain scale. Neuro: Level of Consciousness is awake, alert, obeys commands, Oriented to person, place, time, situation. Cardiovascular: Patient's skin is warm and dry. Respiratory: Airway is patent Respiratory effort is even, unlabored, Respiratory pattern is regular, symmetrical. Respiratory: Reports shortness of breath cough that is. GI: Reports diarrhea. : No signs and/or symptoms were reported regarding the genitourinary system. EENT: Reports nasal congestion. 12:50 Neuro: Reports headache frontal area. rb3 13:44 Reassessment: Patient appears in no apparent distress at this time. No changes from rb3 previously documented assessment. 14:40 Reassessment: Patient appears in no apparent distress at this time. Patient and/or rb3 family updated on plan of care and expected duration. Pain level reassessed. Patient is alert, oriented x 3, equal unlabored respirations, skin warm/dry/pink. 15:00 Reassessment: Patient is alert, oriented x 3, equal unlabored respirations, skin aa5 warm/dry/pink. Vital Signs: 12:35 BP 108 / 66; Pulse 89; Resp 19 S; Temp 97.6(TE); Pulse Ox 98% on R/A; Weight 102.06 kg ca1 (R); Height 5 ft. 6 in. (167.64 cm) (R); Pain 6/10; 13:30 BP 125 / 64; Pulse 84; Resp 16; Pulse Ox 97% ; rb3 14:30 BP 128 / 62; Pulse 80; Resp 16; Pulse Ox 100% ; rb3 12:35 Body Mass Index 36.32 (102.06 kg, 167.64 cm) ca1 ED Course: 12:25 Patient arrived in ED. am2 12:25 Chip Larios MD is Private Physician. am2 12:37 Triage completed. ca1 12:38 Ronald Hernandez PA is PHCP. cp 12:38 Ronald Chambers MD is Attending Physician. cp 12:38 Arm band placed on right wrist. ca1 12:50 Patient has correct armband on for positive identification. Bed in low position. Call rb3 light in reach. Side rails up X 1. Pulse ox on. NIBP on. 13:07 Caitlyn Alanis, RN is Primary Nurse. rb3 13:30 XRAY Chest (1 view) In Process Unspecified. EDMS 14:18 Chip Larios MD is Referral Physician. cp 15:00 No provider procedures requiring assistance completed. Patient did not have IV access aa5 during this emergency room visit. Administered Medications: 13:13 Drug: Tylenol 1000 mg Route: PO; rb3 14:00 Follow up: Response: No adverse reaction; Pain is decreased rb3 Outcome: 14:18 Discharge ordered by . cp 15:00 Discharged to home ambulatory. aa5 15:00 Condition: stable 15:00 Discharge instructions given to patient, Instructed on discharge instructions, follow up and referral plans. medication usage, Demonstrated understanding of instructions, follow-up care, medications, Prescriptions given X 2. 15:04 Patient left the ED. aa5 Signatures: Dispatcher [employer] EDMS Lala Green RN RN aa5 Ronald Hernandez PA PA cp Deloris Hollis am2 Toshia Patterson RN RN ca1 Caitlyn Alanis, RN RN rb3
[2021-01-18 15:08] VITALS: BP 108/66; TEMP 97.6; O2SAT 98
== END 2021-01-18 15:04 | disposition home or self-care (01) ==
LOC: ER 12:23
DX: U07.1 COVID-19 (principal); I10 Essential (primary) hypertension
CPT/HCPCS: 71045; 82947; 99284

== ENCOUNTER 2024-11-10 14:59 | Inpatient (IN) | payer OTHER ==
[2024-11-10] MEDS ORDERED: NA CHLORIDE 0.9% 3,000 ML ONE (15:45)
[2024-11-10] MEDS ORDERED: ACETAMINOPHEN 500 MG TAB ONE (15:45)
[2024-11-10 16:22] LABS: Absolute Lymphocytes (CBC) 0.4 K/uL (0.7-4.9); Absolute Monocytes 0.8 K/uL (0.1-1.3); Absolute Neutrophil 12.1 K/uL (1.8-8.0); Basophils % 0.2 % (0-1.3); Hemoglobin 11.1 g/dL (13.6-17.9); Lymphocytes % 2.8 % (15.3-44.8); MCH 30.3 pg (27.0-35.0); MCHC 33.7 g/dL (32.0-36.0); MCV 89.8 fL (80-100); MPV 9.8 fL (7.6-11.3); Monocytes % 6.2 % (3.3-12.3); Neutrophils % 90.8 % (41.7-73.7); Platelets 162 thou/uL (152-406); RBC Red Blood Cell Count 3.67 M/uL (4.33-5.43); Red Cell Distribution Width 13.7 % (12.1-15.2)
[2024-11-10 16:24] LABS: PT Prothrombin Time 12.3 SECONDS (9.4-12.5); PTT, Activated Partial Thromb 29.1 SECONDS (24.3-36.9); Protime INR 1.1
[2024-11-10 16:36] LABS: Albumin 2.9 g/dL (3.4-5.0); Albumin/Globulin Ratio 0.7 (1.1-1.8); Anion Gap 12.8 mEq/L (5.0-15.0); Bilirubin Total 0.7 mg/dL (0.2-1.0); Potassium 3.8 mEq/L (3.5-5.1); Protein, Total 6.9 g/dL (6.4-8.2)
[2024-11-10 16:43] LABS: Specific Gravity 1.024 (1.005-1.030); Sqamous Epithelial None Seen /HPF (None Seen); Urine Bacteria <20 /HPF (<20); Urine Bilirubin NEGATIVE (Negative); Urine Blood 1+ (Negative); Urine Clarity Extremely Turbid (Clear); Urine Color Yellow (Yellow); Urine Crystals Unidentified Few /HPF (None Seen); Urine Culture Reflex Order REFLEXED; Urine Glucose TRACE (Negative); Urine Ketones 2+ (Negative); Urine Microscopic Reflex YN ORDER UMIC; Urine Mucus 1+ /HPF (None Seen); Urine Nitrite NEGATIVE (Negative); Urine Protein 3+ (Negative); Urine Urobilinogen Normal (Normal); Urine WBC >50 /HPF (<5); Urine WBC Clump Occasional /HPF (None Seen); Urine Yeast (Budding) Occasional /HPF (None Seen)
[2024-11-10] MEDS ORDERED: CEFTRIAXONE 1000 MG/VIAL ONE (17:12)
[2024-11-10] MEDS ORDERED: NA CHLORIDE 0.9% 50 ML ONE (17:13)
--- NOTE | 2024-11-10 17:53 | RAD REPORT ---
EXAMINATION: CT Abdomen Pelvis W Contrast CLINICAL INDICATION: Male, 69 years old. Fever;Flank pain TECHNIQUE: CT abdomen and pelvis was performed, after the administration of IV contrast, as per [facility] protocol. Axial, sagittal and coronal reconstructions were obtained. One or more of the following dose reduction techniques were used: Automated exposure control, adjustment of the mA and k V according to patient size, and iterative reconstruction. Unless otherwise specified, incidental findings do not require dedicated imaging follow-up. COMPARISON: 03/31/2019 FINDINGS: LOWER CHEST: The visualized lung bases are clear. LIVER: Normal in size and contour. No focal lesion. BILIARY SYSTEM: No suspicious abnormalities. SPLEEN: Normal size. No focal lesion. PANCREAS: No mass, ductal dilation, or nasrin-pancreatic fluid. ADRENALS: Normal; no mass. KIDNEYS: Mild asymmetric right renal enlargement. Heterogeneous patchy hypoenhancement of the right r enal interpolar cortex anteriorly and laterally. Asymmetric right perinephric fat stranding. No hydronephrosis. Left renal interpolar 5 mL nonobstructing calculus. URINARY BLADDER: Suboptimally distended limiting evaluation. GASTROINTESTINAL TRACT: No evidence of free air, significant intra-abdominal free fluid, bowel obstru ction or abscess. APPENDIX: Normal appendix. LYMPH NODES: No lymphadenopathy. MUSCULOSKELETAL: No acute or suspicious osseous abnormality. ADDITIONAL FINDINGS: None. IMPRESSION: Heterogeneous right renal cortical hypoenhancement and asymmetric right perinephric fat stranding, co ncerning for ongoing acute pyelonephritis in the appropriate clinical setting. No evidence of obstruction. Incidentally noted left renal nonobstructing 5 mm calculus.
--- NOTE | 2024-11-10 18:12 | EDPHYS ---
Physician Documentation [facility] Name: Caryl Lan Age: 69 yrs Sex: Male : 1955 Arrival Date: 11/10/2024 Time: 14:59 Bed 17 Private MD: ED Physician Clive Yanes HPI: 11/10 16:14 This 69 yrs old Male presents to ER via Ambulatory with complaints of Low Back kb Pain, Flank Pain. 16:14 Pt is a 69 year old male who presents for fever, chills, right flank pain, hematuria, kb urinary frequency/urgency and fatigue that started one week ago. Went to today and was sent to ER for evaluation. No aggravating or alleviating factors. . Historical: - Allergies: 15:12 No Known Allergies; tm6 - PMHx: 15:12 Diabetes - NIDDM; Hypertension; tm6 - Immunization history:: Flu vaccine is not up to date. - Infectious Disease History:: Denies. - Social history:: Smoking status: Patient denies any tobacco usage or history of. ROS: 16:14 Constitutional: As per HPI kb Exam: 16:14 Constitutional: This is a well developed, well nourished patient who is awake, alert, kb and in no acute distress. Head/Face: Normocephalic, atraumatic. ENT: Moist Mucous membranes Cardiovascular: Tachycardic rate Respiratory: Respirations even and unlabored. No increased work of breathing. Talking in full sentences Abdomen/GI: Soft, non-tender. No distention Back: No spinal tenderness. No costovertebral tenderness. Full range of motion. Skin: Warm, dry with normal turgor. Normal color. MS/ Extremity: Pulses equal, no cyanosis. Neurovascular intact. Full, normal range of motion. Neuro: Awake and alert, GCS 15, oriented to person, place, time, and situation. 16:14 ECG was reviewed by the Attending Physician. Vital Signs: 15:10 BP 149 / 89; Pulse 127; Resp 19; Temp 103.3(O); Pulse Ox 96% on R/A; tm6 15:41 Weight 107.05 kg; db 16:30 BP 125 / 56; Pulse 103; Resp 24; Pulse Ox 95% ; db 17:15 BP 128 / 61; Pulse 97; Resp 20; Temp 98.9(O); Pulse Ox 95% on R/A; db 18:00 BP 135 / 61; Pulse 96; Resp 20; Pulse Ox 96% on R/A; db 20:00 BP 165 / 75; Pulse 137; Resp 18; Temp 99.9; Pulse Ox 98% ; br2 20:33 BP 169 / 89; Pulse 110; Resp 16; Pulse Ox 95% ; br2 MDM: 15:04 Medical Screening Exam initiated kb 18:10 Differential diagnosis: UTI, pyelonephritis. Data reviewed: vital signs, nurses notes. kb Consideration of Admission/Observation Patient was admitted/placed on observation. Escalation of care including admission/observation considered. Management of patient was discussed with the following: Hospitalist: Dr Smallwood accepts pt for admission. Historians other than the Patient: Spouse/Significant Other: . Counseling: I had a detailed discussion with the patient and/or guardian regarding the historical points, exam findings, and any diagnostic results supporting the discharge/admit diagnosis, lab results, radiology results, the need for further work-up and treatment in the hospital. 11/10 15:12 Order name: Blood Culture Adult (2) kb 11/10 15:12 Order name: CBC with Diff; Complete Time: 16:30 kb 11/10 15:12 Order name: CMP; Complete Time: 16:41 kb 11/10 15:12 Order name: Lactate w/ 2H reflex if indic.; Complete Time: 16:41 kb 11/10 15:12 Order name: Protime (+inr); Complete Time: 16:30 kb 11/10 15:12 Order name: Ptt, Activated; Complete Time: 16:30 kb 11/10 15:12 Order name: Urinalysis w/ reflexes; Complete Time: 16:45 kb 11/10 16:32 Order name: Glucose, Ancillary Testing; Complete Time: 16:32 EDMS 11/10 16:46 Order name: Urine Culture EDMS 11/10 18:38 Order name: CBC with Automated Diff EDMS 11/10 18:38 Order name: CBC with Automated Diff EDMS 11/10 18:38 Order name: Comprehensive Metabolic Panel EDMS 11/10 18:38 Order name: Comprehensive Metabolic Panel EDDE 11/10 15:12 Order name: CT Abd/Pelvis - IV Contrast Only; Complete Time: 17:57 kb 11/10 15:12 Order name: Accucheck; Complete Time: 16:20 kb 11/10 15:12 Order name: Cardiac monitoring; Complete Time: 16:15 kb 11/10 15:12 Order name: EKG - Nurse/Tech; Complete Time: 15:51 kb 11/10 15:12 Order name: IV Saline Lock - Large Bore; Complete Time: 16:15 kb 11/10 15:12 Order name: Labs collected and sent; Complete Time: 16:15 kb 11/10 15:12 Order name: O2 Per Protocol; Complete Time: 16:16 kb 11/10 15:12 Order name: O2 Sat Monitoring; Complete Time: 16:15 kb 11/10 15:12 Order name: Vital Signs; Complete Time: 16:16 kb 11/10 17:18 Order name: Vital Signs; Complete Time: 17:22 kb EC:14 Rate is 117 beats/min. Rhythm is regular. QRS [place] is Normal. [place] interval is normal at kb 152 msec. QRS interval is normal at 82 msec. QT interval is normal at 449 msec. Administered Medications: 15:30 Drug: Acetaminophen PO 1000 mg PO once Route: PO; db 19:11 Follow up: Response: No adverse reaction db 16:15 Drug: NS 0.9% IV (30 ml/kg) 30 ml/kg IV at bolus once; Sepsis Protocol; to be given as db a bolus over 90 minutes Route: IV; Rate: bolus; Site: right antecubital; 19:10 Follow up: Response: No adverse reaction; IV Status: Completed infusion; IV Intake: db 1000ml ; PATIENT REFUSED 1 LITER PER PROVIDER DAMIEN CHOU 17:20 Drug: Rocephin IV 1 grams IV at calculated rate once; Given slow IV push per pharmacy db instructions Route: IV; Rate: calculated rate; Site: right antecubital; 19:09 Follow up: Response: No adverse reaction; IV Status: Completed infusion; IV Intake: 50mldb 20:20 Drug: Metoprolol IVP 5 mg IVP once; Hold for SBP <100 or HR <60. Route: IVP; Site: br2 right antecubital; 21:16 Follow up: Response: No adverse reaction br2 20:20 Drug: Metoprolol PO 25 mg PO once Route: PO; br2 21:17 Follow up: Response: No adverse reaction br2 Point of Care Testing: Blood Glucose: 16:23 Blood Glucose: 157 mg/dL; db Ranges: Critical Glucose Levels:Adult <50 mg/dl or >400 mg/dl <40 mg/dl or >180 mg/dl Disposition: 20:21 I was immediately available on-site in the Emergency Department for consultation in the ms3 care of the patient. Disposition Summary: 11/10/24 18:11 Hospitalization Ordered Notes: Hospitalization Status: Inpatient Admission kb Provider: Harley Smallwood Location: Telemetry/MedSurg (Inpatient) kb Condition: Stable kb Problem: new kb Symptoms: are unchanged kb Bed/Room Type: Standard Room Assignment: 229(11/10/24 19:45) vc1 Diagnosis - Pyelonephritis acute kb - Sepsis, unspecified organism kb Forms: - Medication Reconciliation Form kb - SBAR form kb - Leadership Thank You Letter kb Signatures: Dispatcher [employer] EDMS Linda Chou, PIT SLAGMAN-C PIT SLAGMAN-Ckb Clive Yanes DO DO ms3 Zara Key, RN RN vc1 Rebekah Clark, RN RN db Sami Arriola, RN RN tm6 Jessica Billingsley RN RN br2 Corrections: (The following items were deleted from the chart) 15:12 15:12 BLOOD CULTURE*+BA.LAB.BRZ ordered. EDMS EDMS 15:12 15:12 CBC+H.LAB.BRZ ordered. EDMS EDMS 15:12 15:12 COMPREHENSIVE METABOLIC PANEL+C.LAB.BRZ ordered. EDMS EDMS 15:12 15:12 LACTATE+C.LAB.BRZ ordered. EDMS EDMS 15:12 15:12 PROTIME (+INR)+COAG.LAB.BRZ ordered. EDMS EDMS 15:12 15:12 PTT, ACTIVATED+COAG.LAB.BRZ ordered. EDMS EDMS 15:12 15:12 Urinalysis+U.LAB.BRZ ordered. EDMS EDMS 15:12 15:12 Abdomen Pelvis W Con+CT.RAD.BRZ ordered. EDMS EDMS 19:45 18:11 kb vc1
--- NOTE | 2024-11-10 18:12 | ER ---
Nurse's Notes [facility] Name: Caryl Lan Age: 69 yrs Sex: Male : 1955 Arrival Date: 11/10/2024 Time: 14:59 Bed 17 Private MD: Diagnosis: Pyelonephritis acute;Sepsis, unspecified organism Presentation: 11/10 15:11 Chief complaint: Patient states: lower back pain, chills, right flank pain x1 week, tm6 worsening. Fatigue and fever. Blood in urine on Wednesday. Coronavirus screen: Client denies travel out of the [place] in the last 14 days. Ebola Screen: Patient negative for fever greater than or equal to 101.5 degrees Fahrenheit, and additional compatible Ebola Virus Disease symptoms Patient denies exposure to infectious person. Patient denies travel to an Ebola-affected area in the 21 days before illness onset. No symptoms or risks identified at this time. Initial Sepsis Screen: Does the patient meet any 2 criteria? Temp <36.0*C (96.8*F)) or > 38.3*C (100.9*F). HR > 90 bpm. Yes Does the patient have a suspected source of infection? No. Patient's initial sepsis screen is negative. Risk Assessment: Do you want to hurt yourself or someone else? Patient reports no desire to harm self or others. Onset of symptoms was November 03, 2024. 15:11 Method Of Arrival: Ambulatory tm6 15:11 Acuity: DAISHA 3 tm6 Triage Assessment: 15:12 General: Appears uncomfortable, Behavior is calm, cooperative. Pain: Complains of pain tm6 in low back area and pelvis Pain currently is 5 out of 10 on a pain scale. EENT: No signs and/or symptoms were reported regarding the EENT system. Neuro: Level of Consciousness is awake, alert, obeys commands, Oriented to person, place, time, situation. Cardiovascular: Patient's skin is warm and dry. Respiratory: Airway is patent Respiratory effort is even, unlabored, Respiratory pattern is regular, symmetrical. GI: No signs and/or symptoms were reported involving the gastrointestinal system. Abdomen is round non-distended. : Reports pain in right in left flank(s), blood in urine. Derm: No signs and/or symptoms reported regarding the dermatologic system. Musculoskeletal: No signs and/or symptoms reported regarding the musculoskeletal system. Historical: - Allergies: 15:12 No Known Allergies; tm6 - PMHx: 15:12 Diabetes - NIDDM; Hypertension; tm6 - Immunization history:: Flu vaccine is not up to date. - Infectious Disease History:: Denies. - Social history:: Smoking status: Patient denies any tobacco usage or history of. Screenin:24 [facility] ED Fall Risk Assessment (Adult) History of falling in the last 3 months, db including since admission No falls in past 3 months (0 pts) Confusion or Disorientation No (0 pts) Intoxicated or Sedated No (0 pts) Impaired Gait No (0 pts) Mobility Assist Device Used No (0 pt) Altered Elimination No (0 pt) Score/Fall Risk Level 0 - 2 = Low Risk Oriented to surroundings, Maintained a safe environment. Abuse screen: Denies threats or abuse. Denies injuries from another. Nutritional screening: No deficits noted. Tuberculosis screening: No symptoms or risk factors identified. Assessment: 15:11 Reassessment: code sepsis. tm6 16:24 Reassessment: Patient appears in no apparent distress at this time. Patient and/or db family updated on plan of care and expected duration. Pain level reassessed. Patient is alert, oriented x 3, equal unlabored respirations, skin warm/dry/pink. General: Appears in no apparent distress. comfortable, Behavior is calm, cooperative. Neuro: Level of Consciousness is awake, alert, obeys commands, Oriented to person, place, time, situation. Respiratory: Airway is patent Respiratory effort is even, unlabored, Respiratory pattern is regular, symmetrical. : Reports BLOOD IN URINE. 16:54 Reassessment: Patient appears in no apparent distress at this time. Patient and/or db family updated on plan of care and expected duration. Pain level reassessed. Patient is alert, oriented x 3, equal unlabored respirations, skin warm/dry/pink. 18:33 Reassessment: Patient appears in no apparent distress at this time. Patient and/or db family updated on plan of care and expected duration. Pain level reassessed. Patient is alert, oriented x 3, equal unlabored respirations, skin warm/dry/pink. ADMISSION PHYSICIAN AT PATIENT BEDSIDE. 20:00 Reassessment: PT HEART RATE A 145-155 [place] NOTIFIED...PT DENIES ANY CHEST PAIN. br2 Vital Signs: 15:10 BP 149 / 89; Pulse 127; Resp 19; Temp 103.3(O); Pulse Ox 96% on R/A; tm6 15:41 Weight 107.05 kg; db 16:30 BP 125 / 56; Pulse 103; Resp 24; Pulse Ox 95% ; db 17:15 BP 128 / 61; Pulse 97; Resp 20; Temp 98.9(O); Pulse Ox 95% on R/A; db 18:00 BP 135 / 61; Pulse 96; Resp 20; Pulse Ox 96% on R/A; db 20:00 BP 165 / 75; Pulse 137; Resp 18; Temp 99.9; Pulse Ox 98% ; br2 20:33 BP 169 / 89; Pulse 110; Resp 16; Pulse Ox 95% ; br2 ED Course: 15:03 Patient arrived in ED. ra3 15:04 Linda Chou FNP-C is [facility]. kb 15:04 Clive Yanes DO is Attending Physician. kb 15:12 Triage completed. tm6 15:12 Arm band placed on right wrist. tm6 15:41 Rebekah Clark, RN is Primary Nurse. db 15:[address] db 15:51 EKG done, by ED staff, reviewed by Linda CALVILLO. tm6 16:00 Missed attempt(s): 20 gauge Bleeding controlled, band aid applied, catheter tip intact. ty 16:07 Initial lab(s) drawn, by me, sent to lab. First set of blood cultures drawn by me. ty Inserted saline lock: 20 gauge in right antecubital area, using aseptic technique. Blood collected. Flushed with 10 mL NS. 16:19 Second set of blood cultures drawn by me. ty 16:20 Blood Culture Adult (2) Sent. ty 16:20 CBC with Diff Sent. ty 16:20 CMP Sent. ty 16:20 Lactate w/ 2H reflex if indic. Sent. ty 16:21 Protime (+inr) Sent. ty 16:21 Ptt, Activated Sent. ty 16:21 Urinalysis w/ reflexes Sent. ty 16:23 Patient has correct armband on for positive identification. Placed in gown. Bed in low db position. Call light in reach. Side rails up X2. Client placed on continuous cardiac and pulse oximetry monitoring. NIBP monitoring applied. shelter monitor on. Pulse ox on. NIBP on. Warm blanket given. Pillow given. 17:01 CT Abd/Pelvis - IV Contrast Only In Process Unspecified. EDMS 17:22 No provider procedures requiring assistance completed. db 18:11 Harley Smallwood MD is Hospitalizing Provider. kb 19:42 Jessica Billingsley, VARINDER is Primary Nurse. br2 21:18 Patient admitted, IV remains in place. br2 Administered Medications: 15:30 Drug: Acetaminophen PO 1000 mg PO once Route: PO; db 19:11 Follow up: Response: No adverse reaction db 16:15 Drug: NS 0.9% IV (30 ml/kg) 30 ml/kg IV at bolus once; Sepsis Protocol; to be given as db a bolus over 90 minutes Route: IV; Rate: bolus; Site: right antecubital; 19:10 Follow up: Response: No adverse reaction; IV Status: Completed infusion; IV Intake: db 1000ml ; PATIENT REFUSED 1 LITER PER PROVIDER DAMIEN CHOU 17:20 Drug: Rocephin IV 1 grams IV at calculated rate once; Given slow IV push per pharmacy db instructions Route: IV; Rate: calculated rate; Site: right antecubital; 19:09 Follow up: Response: No adverse reaction; IV Status: Completed infusion; IV Intake: 50mldb 20:20 Drug: Metoprolol IVP 5 mg IVP once; Hold for SBP <100 or HR <60. Route: IVP; Site: br2 right antecubital; 21:16 Follow up: Response: No adverse reaction br2 20:20 Drug: Metoprolol PO 25 mg PO once Route: PO; br2 21:17 Follow up: Response: No adverse reaction br2 Medication: 16:24 VIS not applicable for this client. db Point of Care Testing: Blood Glucose: 16:23 Blood Glucose: 157 mg/dL; db Ranges: Intake: 19:09 IV: 50ml; Total: 50ml. db 19:10 IV: 1000ml; Total: 1050ml. db Outcome: 18:11 Decision to Hospitalize by Provider. kb 21:18 Admitted to Med/surg accompanied by tech, via stretcher, room 229, br2 21:18 Condition: stable 21:18 Instructed on the need for admit, Demonstrated understanding of instructions, 21:19 Patient left the ED. br2 Signatures: Dispatcher [employer] EDMS Linda Chou, GUEST RELATIONS MANAGER-C GUEST RELATIONS MANAGER-Rebekah Burks, RN RN db Sami Arriola RN RN patience6 Lani Cedeno ra3 Volodymyr Puentes Belinda RN RN br2 Corrections: (The following items were deleted from the chart) 16:24 16:23 No provider procedures requiring assistance completed. db db 16: 16:23 Patient admitted, IV remains in place. db db 16:24 16:23 Admitted to Med/surg room 216, db db 16:24 16:23 Condition: stable db db 16:24 16:23 Instructed on the need for admit, db db 16:25 16:23 Provided Education on: db db
[2024-11-10] MEDS ORDERED: D10W 125 ML IV PRN (18:34)
[2024-11-10] MEDS ORDERED: MORPHINE 4 MG/ML SYR IV PRN (18:34)
[2024-11-10] MEDS ORDERED: ONDANSETRON 4 MG/2 ML VIAL IV PRN (18:34)
[2024-11-10] MEDS ORDERED: GLUCAGON 1 MG/VIAL IM PRN (18:34)
--- NOTE | 2024-11-10 18:43 | P.HP ---
Certification for Inpatient With expected LOS: >2 Midnights Practitioner: I am a practitioner with admitting privileges, knowledge of patient current condition, hospital course, and medical plan of care. Services: Services provided to patient in accordance with Admission requirements found in Title 42 Section 412.3 of the Code of Federal Regulations Patient History Date of Service: 11/10/24 Reason for admission: Acute pyelonephritis History of Present Illness: Patient is 69 years of age admitted with 1 week onset of sided flank pain hematuria fever chills admitted with right-sided pyelonephritis no prior history of urinary tract problems Allergies No Known Allergies Allergy (Verified 03/31/19 21:43) Home Medications: Amlodipine [Norvasc*] 10 mg PO DAILY 04/01/19 Glimepiride 2 mg PO BIDWM 04/01/19 Liraglutide [Victoza 2-Endy] 1.8 mg SQ DAILY 04/01/19 Metformin HCl [Metformin HCl ER] 500 mg PO BID 04/01/19 Mometasone Furoate [Nasonex] 1 spray NS BID 04/01/19 Omeprazole Magnesium [Prilosec Otc] 1 tab PO DAILY 04/01/19 Ondansetron [Zofran (Odt)*] 8 mg PO Q8HR PRN 04/01/19 - Past Medical/Surgical History Diabetic: Yes -: HTN -: DM II -: gerd -: right foot reattatchment -: left knee surgery - Family History Mother -: Diabetes, Other (see notes) Notes: cva Father -: Cancer Notes: esophageal - Social History Alcohol use: Yes CD- Drugs: No Caffeine use: Yes Review of Systems 10-point ROS is otherwise unremarkable Physical Examination - Vital Signs Temperature: 103 F Blood Pressure: 135/61 Pulse: 27 Respirations: 14 Pulse Ox (%): 100 - Physical Exam General: Alert, Oriented x3 Respiratory: Clear to auscultation bilaterally, Normal air movement Cardiovascular: No edema, Regular rate/rhythm Gastrointestinal: Normal bowel sounds, Soft and benign, Other (Right-sided flank pain) Musculoskeletal: No clubbing, No swelling Integumentary: No rashes, No breakdown - Studies Laboratory Data (last 24 hrs) 11/10/24 11/10/24 11/10/24 16:07 16:07 16:07 WBC 13.40 H Hgb 11.1 L Hct 33.0 L Plt Count 162 PT 12.3 INR 1.10 APTT 29.1 Sodium 133 L Potassium 3.8 BUN 21 H Creatinine 1.26 Glucose 165 H Total Bilirubin 0.7 AST 11 L ALT 22 Alkaline Phosphatase 92 Assessment and Plan - Problems (Diagnosis) (1) Acute pyelonephritis Current Visit: Yes Status: Acute Plan: Patient is 69 years of age admitted with acute onset of right-sided pyelonephritis history he is has diabetes and hypertension has had surgeries on his legs currently is on disability labs all reviewed mildly elevated white count mildly anemic with evidence of urinary tract infection right flank tenderness T scan Heterogeneous right renal cortical hypoenhancement and asymmetric right perinephric fat stranding, concerning for ongoing acute pyelonephritis in the appropriate clinical setting. No evidence of obstruction. Incidentally noted left renal nonobstructing 5 mm calculus. To admit start patient on Rocephin (2) Atrial fibrillation Current Visit: Yes Status: Acute Plan: Patient admitted with new onset of A-fib will order a 2D echocardiogram cardiology consult start on metoprolol and Lovenox Qualifiers: Atrial fibrillation type: paroxysmal Qualified Code(s): I48.0 - Paroxysmal atrial fibrillation - Advance Directives Does patient have a Living Will: No Does patient have a Durable POA for Healthcare: No
[2024-11-10] MEDS: NA CHLORIDE 0.9% 1,000 ML IV SCH (19:00)
[2024-11-10] MEDS ORDERED: METOPROLOL TAR 25 MG TAB ONE (20:24)
[2024-11-10] MEDS ORDERED: METOPROLOL TARTRATE 5 MG/5 ML INJ IV ONE (20:24)
[2024-11-10] MEDS: INSULIN REGULAR (HUMAN) 100 UNIT/ML SQ SCH (21:00)
[2024-11-10 21:53] VITALS: O2SAT 95
[2024-11-10 22:12] VITALS: BMI 38.0
[2024-11-10] MEDS: ENOXAPARIN 100 MG/ML SYR SQ ONE (22:28)
[2024-11-11 05:24] LABS: Absolute Lymphocytes (CBC) 0.4 K/uL (0.7-4.9); Absolute Monocytes 0.9 K/uL (0.1-1.3); Absolute Neutrophil 10.1 K/uL (1.8-8.0); Basophils % 0.2 % (0-1.3); Hematocrit 29.7 % (39.6-49.0); Hemoglobin 10.2 g/dL (13.6-17.9); Lymphocytes % 3.4 % (15.3-44.8); MCH 31.1 pg (27.0-35.0); MCHC 34.4 g/dL (32.0-36.0); MCV 90.3 fL (80-100); MPV 9.6 fL (7.6-11.3); Monocytes % 8.1 % (3.3-12.3); Neutrophils % 88.3 % (41.7-73.7); Platelets 131 thou/uL (152-406); RBC Red Blood Cell Count 3.29 M/uL (4.33-5.43); Red Cell Distribution Width 13.2 % (12.1-15.2)
[2024-11-11 05:41] LABS: Albumin 2.3 g/dL (3.4-5.0); Albumin/Globulin Ratio 0.6 (1.1-1.8); Anion Gap 11.6 mEq/L (5.0-15.0); Bilirubin Total 0.7 mg/dL (0.2-1.0); Globulin 3.6 g/dL (2.3-3.5); Potassium 3.6 mEq/L (3.5-5.1); Protein, Total 5.9 g/dL (6.4-8.2)
[2024-11-11 08:36] LABS: Blood Morphology Comment NOT SEEN (NOT SEEN); Platelet Estimate ADEQ; White Blood Cell Scan OK (OK)
[2024-11-11] MEDS: ENOXAPARIN 100 MG/ML SYR SQ SCH (09:04)
[2024-11-11] MEDS: CEFTRIAXONE 1,000 MG in NA CHLORIDE 0.9% 50 ML IVPB SCH (09:04)
[2024-11-11] MEDS: VANCOMYCIN 1 GM in NA CHLORIDE 0.9% 250 ML IVPB SCH (16:01)
[2024-11-11] MEDS: ACETAMINOPHEN 325 MG TABLET PO PRN (16:48)
[2024-11-11] MEDS: VANCOMYCIN 2 GM in NA CHLORIDE 0.9% 500 ML IVPB SCH (17:00)
--- NOTE | 2024-11-11 18:50 | P.PN ---
Subjective Date of Service: 11/11/24 Chief Complaint: Acute pyelonephritis Patient complaining of headache. Patient also had fever today and developed tachycardia. He has been also experiencing paroxysmal atrial fibrillation since last night. Physical Examination - Vital Signs Temperature: 102 F Blood Pressure: 147/65 Pulse: 109 Respirations: 18 Pulse Ox (%): 96 Assessment And Plan - Plan Physical examination General: Alert and oriented x3, NAD, HEENT: Conjunctiva not pale, anicteric sclera Neck: Supple, no elevated JVD Heart: Heart sounds 1 and 2 normal, regular rhythm, tachycardia, no pedal edema, good capillary refill. Lungs: Clear to auscultation bilaterally, adequate breath sounds bilaterally, no rhonchi or crackles. Abdomen: Soft, nondistended, nontender, normal bowel sounds. Extremities: No tenderness, no deformity Skin: Normal skin turgor, no rash, no nodules or ulcers. Neuro: No focal motor deficit. Normal speech. Psychiatry: Normal mood, no agitation. Assessment and plan Complicated UTI Sepsis Gram-negative bacteremia Patient with persistent fever on IV Rocephin. IV Rocephin changed to IV cefepime Follow urine culture and blood cultures for organism identification and sensitivity IV hydration. Diet as tolerated. Paroxysmal atrial fibrillation Patient is currently in sinus rhythm heart goes in and out of A-fib. Metoprolol as needed for rapid heart rate. Patient started on Lovenox anticoagulation Cardiology consult. BPH Patient reports history of urinary retention. He states that he is supposed to follow-up with Dr. Mueller for ultrasound of his prostate as part of evaluation for prostate surgery. Resume home dose Flomax Monitor for urinary retention. Hypertension Hold antihypertensives for now given sepsis Monitor BP. Anemia Monitor and transfuse for hemoglobin less than 7. DVT prophylaxis: Patient is on full dose Lovenox Advanced directive: Full code.
[2024-11-11] MEDS ORDERED: VANCOMYCIN 2 GM in NA CHLORIDE 0.9% 500 ML IVPB SCH (19:00)
[2024-11-11] MEDS: VANCOMYCIN 1 GM/VIAL ONE (20:09)
[2024-11-11] MEDS: NA CHLORIDE 0.9% 250 ML ONE (20:10)
[2024-11-11] MEDS: TAMSULOSIN 0.4 MG SR CAP PO SCH (20:26)
[2024-11-11] MEDS: CEFEPIME 2 GM in NA CHLORIDE 0.9% 100 ML IV SCH (20:27)
[2024-11-11] MEDS: MOMETASONE FUROATE PUMP NS SCH (21:00)
[2024-11-12 05:11] LABS: Absolute Lymphocytes (CBC) 0.9 K/uL (0.7-4.9); Absolute Neutrophil 7.4 K/uL (1.8-8.0); Basophils % 0.3 % (0-1.3); Eosinophils % 0.4 % (0-4.4); Hematocrit 30.2 % (39.6-49.0); Hemoglobin 10.7 g/dL (13.6-17.9); Lymphocytes % 9.7 % (15.3-44.8); MCH 31.6 pg (27.0-35.0); MCHC 35.3 g/dL (32.0-36.0); MCV 89.6 fL (80-100); MPV 9.4 fL (7.6-11.3); Monocytes % 10.2 % (3.3-12.3); Neutrophils % 79.4 % (41.7-73.7); Platelets 146 thou/uL (152-406); RBC Red Blood Cell Count 3.37 M/uL (4.33-5.43); Red Cell Distribution Width 13.5 % (12.1-15.2)
[2024-11-12 05:36] LABS: Anion Gap 10.6 mEq/L (5.0-15.0); Potassium 3.6 mEq/L (3.5-5.1)
[2024-11-12] MEDS: ASPIRIN 81 MG CHEWABLE TABLET PO SCH (08:58)
[2024-11-12] MEDS: PANTOPRAZOLE 40MG TABLET PO SCH (08:58)
[2024-11-12] MEDS: AMLODIPINE 10 MG TAB PO SCH (11:40)
--- NOTE | 2024-11-12 12:44 | P.CNS ---
Date of Consult: 11/12/24 Chief Complaint: Acute pyelonephritis History of Present Illness: Patient with PMH of HTN, DM presented with UTI, Sepsis, deneis having any cardiac symptoms, cardiology was consulted as tele was showing patient going into intermittent AF, patient denies such diagnosis in the past. Allergies No Known Allergies Allergy (Verified 03/31/19 21:43) Home medications list reviewed: Yes Home Medications: Amlodipine [Norvasc*] 5 mg PO DAILY 04/01/19 Glimepiride 2 mg PO BIDWM 04/01/19 Liraglutide [Victoza 2-Endy] 1.8 mg SQ DAILY 04/01/19 Metformin HCl [Metformin HCl ER] 500 mg PO BID 04/01/19 Mometasone Furoate [Nasonex] 1 spray NS BID 04/01/19 Omeprazole Magnesium [Prilosec Otc] 1 tab PO DAILY 04/01/19 Ondansetron [Zofran (Odt)*] 8 mg PO Q8HR PRN 04/01/19 Aspirin 81 mg PO DAILY 11/10/24 Atorvastatin Calcium [Lipitor] 20 mg PO BEDTIME 11/10/24 Celecoxib [Celebrex] 200 mg PO BID 11/10/24 Losartan Potassium 100 mg PO BID 11/10/24 Pioglitazone HCl/Glimepiride [Duetact 30-4 mg Tablet] 30 mg PO DAILY 11/10/24 Tamsulosin [Flomax*] 0.4 mg PO BID 11/10/24 tadalafiL [Tadalafil] 20 mg PO DAILY 11/10/24 - Past Medical/Surgical History Diabetic: Yes -: HTN -: DM II -: gerd -: right foot reattatchment -: left knee surgery - Family History Mother Medical History: Diabetes, Other (see notes) Notes: cva Father Medical History: Cancer Notes: esophageal - Social History Alcohol use: Yes CD- Drugs: No Caffeine use: Yes Place of Residence: Home Review of Systems 10-point ROS is otherwise unremarkable Physical Examination Temp Pulse Resp BP Pulse Ox 98.0 F 76 16 139/70 98 11/12/24 08:00 11/12/24 11:40 11/12/24 08:00 11/12/24 08:00 11/12/24 08:00 General: Alert, In no apparent distress HEENT: Atraumatic, PERRLA, Mucous membr. moist/pink, EOMI, Sclerae nonicteric Neck: Supple, 2+ carotid pulse no bruit, No LAD, Without JVD or thyroid abnormality Respiratory: Clear to auscultation bilaterally, Normal air movement Cardiovascular: Regular rate/rhythm, Normal S1 S2 Gastrointestinal: Normal bowel sounds, No tenderness Musculoskeletal: No tenderness Integumentary: No rashes Neurological: Normal gait, Normal speech, Normal tone, Normal affect Lymphatics: No axilla or inguinal lymphadenopathy - Problems (1) Atrial fibrillation Current Visit: Yes Status: Acute Plan: most likely new onset secondary to acute illness. start patient on scheduled Metoprolol 25 mg po BID Agree with therapeutic lovenox, Will need to switch to Eliquis 5 mg po BID on discharge. Qualifiers: Atrial fibrillation type: paroxysmal Qualified Code(s): I48.0 - Paroxysmal atrial fibrillation
--- NOTE | 2024-11-12 15:25 | P.PN ---
Subjective Date of Service: 11/12/24 Chief Complaint: Acute pyelonephritis Patient states he feels better today. Patient had intermittent fever yesterday. No fever recorded today. He has been also experiencing paroxysmal atrial fibrillation. Physical Examination - Vital Signs Temperature: 98.0 F Blood Pressure: 147/73 Pulse: 93 Respirations: 14 Pulse Ox (%): 97 - Studies Microbiology Data (last 24 hrs): 11/10/24 16:18 Clean Catch Urine [place] Count - Final >100,000 CFU/ML. 11/10/24 16:18 Clean Catch Urine - Final Escherichia Coli 11/10/24 16:18 Blood - Blood Blood Culture Gram Stain - Final Assessment And Plan - Plan Physical examination General: Alert and oriented x3, NAD, HEENT: Anicteric sclera Neck: Supple, no elevated JVD Heart: Heart sounds 1 and 2 normal, regular rhythm, tachycardia, no pedal edema, good capillary refill. Lungs: Clear to auscultation bilaterally, adequate breath sounds bilaterally, no rhonchi or crackles. Abdomen: Soft, nondistended, nontender, normal bowel sounds. Extremities: No tenderness, no deformity Skin: Normal skin turgor, no rash, no nodules or ulcers. Neuro: No focal motor deficit. Normal speech. Psychiatry: Normal mood, no agitation. Assessment and plan Complicated E. coli UTI Sepsis Gram-negative bacteremia Patient with persistent fever on IV Rocephin. He defervesced with IV cefepime. Urine culture growing pansensitive E. coli. Blood culture organism identification is pending. Continue IV cefepime. Continue IV NS. Repeat blood culture. Diet as tolerated. Paroxysmal atrial fibrillation Patient is currently in sinus rhythm heart. He goes in and out of A-fib. Continue metoprolol and Lovenox anticoagulated Cardiology input appreciated. BPH Patient reports history of urinary retention. He states that he is supposed to follow-up with Dr. Mueller for ultrasound of his prostate as part of evaluation for prostate surgery. Continue Flomax. Monitor for urinary retention. Hypertension Patient is currently hypertensive. Resume home antihypertensives. Anemia Monitor and transfuse for hemoglobin less than 7. DM type II Hold metformin and glimepiride Manage blood sugar with insulin sliding scale. Hyponatremia Continue IV NS DVT prophylaxis: Patient is on full dose Lovenox Advanced directive: Full code.
[2024-11-12] MEDS: ATORVASTATIN 20 MG TAB PO SCH (22:06)
[2024-11-12] MEDS: LOSARTAN POTASSIUM 50 MG TABLET PO SCH (22:06)
[2024-11-13 04:46] LABS: Hematocrit 28.6 % (39.6-49.0); MCV 90.5 fL (80-100)
[2024-11-13 04:50] LABS: Absolute Eosinophils 0.1 K/uL (0-0.5); Absolute Lymphocytes (CBC) 0.8 K/uL (0.7-4.9); Absolute Monocytes 0.7 K/uL (0.1-1.3); Absolute Neutrophil 5.1 K/uL (1.8-8.0); Basophils % 0.3 % (0-1.3); Hemoglobin 9.7 g/dL (13.6-17.9); Lymphocytes % 11.6 % (15.3-44.8); MCH 30.6 pg (27.0-35.0); MCHC 33.7 g/dL (32.0-36.0); MPV 9.5 fL (7.6-11.3); Monocytes % 10.3 % (3.3-12.3); Neutrophils % 75.8 % (41.7-73.7); Platelets 142 thou/uL (152-406); RBC Red Blood Cell Count 3.16 M/uL (4.33-5.43); Red Cell Distribution Width 13.6 % (12.1-15.2)
[2024-11-13 04:54] LABS: Anion Gap 8.4 mEq/L (5.0-15.0); Potassium 3.4 mEq/L (3.5-5.1)
[2024-11-13] MEDS: PNEUMOCOCCAL VACCINE 0.5 ML IMVAC ONE (08:00)
[2024-11-13] MEDS ORDERED: GLIMEPIRIDE 2 MG TABLET PO SCH (09:00)
--- NOTE | 2024-11-13 10:07 | P.PN ---
Subjective Date of Service: 11/13/24 Chief Complaint: Acute pyelonephritis Subjective: No new changes, No C/O voiced, Tolerating diet, Ambulating, Improving Review of Systems 10-point ROS is otherwise unremarkable Physical Examination - Vital Signs Temperature: 98.2 F Blood Pressure: 144/72 Pulse: 85 Respirations: 18 Pulse Ox (%): 97 - Physical Exam General: Alert, In no apparent distress HEENT: Atraumatic, PERRLA, EOMI Neck: Supple, JVD not distended Respiratory: Clear to auscultation bilaterally, Normal air movement Cardiovascular: Regular rate/rhythm, Normal S1 S2 Gastrointestinal: Normal bowel sounds, No tenderness Musculoskeletal: No tenderness Integumentary: No rashes Neurological: Normal speech, Normal tone, Normal affect Lymphatics: No axilla or inguinal lymphadenopathy - Studies Microbiology Data (last 24 hrs): 11/10/24 16:18 Blood - Blood Blood Culture Gram Stain - Final 11/10/24 16:18 Clean Catch Urine [place] Count - Final >100,000 CFU/ML. 11/10/24 16:18 Clean Catch Urine - Final Escherichia Coli Medications List Reviewed: Yes Assessment And Plan - Current Problems (Diagnosis) (1) Atrial fibrillation Current Visit: Yes Status: Acute Plan: most likely new onset secondary to acute illness. start patient on Metoprolol 25 mg po BID Agree with therapeutic lovenox, Will need to switch to Eliquis 5 mg po BID on discharge. outpatient follow up with cardiology. Qualifiers: Atrial fibrillation type: paroxysmal Qualified Code(s): I48.0 - Paroxysmal atrial fibrillation
--- NOTE | 2024-11-13 10:50 | EKG ---
Test Date: 2024-11-10 Test Time: 15:44:52 Inpatient Care Manager Rn: JULIA MEASUREMENT RESULTS: Intervals: Rate: 117 GA: 152 QRSD: 82 QT: 322 QTc: 449 [place]: P: 36 GA: 152 QRS: -8 T: 41 INTERPRETIVE STATEMENTS: Sinus tachycardia Otherwise normal ECG Compared to ECG 02/11/2007 12:49:56 Sinus rhythm no longer present Electronically Signed On 11-13-24 10:49:48 CAR PORTER by Robert Benítez
[2024-11-13] MEDS: PIOGLITAZONE 15 MG TAB PO SCH (12:14)
--- NOTE | 2024-11-13 13:27 | ECHO ---
HEIGHT: 5 ft 6 in WEIGHT: 236 lb 0 oz DATE OF STUDY: 11/13/[address]: Harley Smallwood MD 2-DIMENSIONAL: YES M.MODE: YES DOPPLER: YES COLOR FLOW: YES TDS: NO PORTABLE: YES DEFINITY: NO BUBBLE STUDY: NO DIAGNOSIS: NEW ONSET ATRIAL FIBRILLATION CARDIAC HISTORY: CATHERIZATION: SURGERY: PROSTHETIC VALVE: PACEMAKER: MEASUREMENTS (cm) DIASTOLIC (NORMALS) SYSTOLIC (NORMALS) IVSd 1.2 (0.6-1.2) LA Diam 4.3 (1.9-4.0) LVEF 69% LVIDd 5.3 (3.5-5.7) LVIDs 3.2 (2.0-3.5) %FS 39% LVPWd 1.3 (0.6-1.2) Ao Diam 2.9 (2.0-3.7) 2 DIMENSIONAL ASSESSMENT: RIGHT ATRIUM: NORMAL LEFT ATRIUM: NORMAL RIGHT VENTRICLE: NORMAL LEFT VENTRICLE: NORMAL TRICUSPID VALVE: TRACE OF TRICUSPID REGURGITATION MITRAL VALVE: NORMAL PULMONIC VALVE: NORMAL AORTIC VALVE: NORMAL PERICARDIAL EFFUSION: NONE AORTIC ROOT: NORMAL LEFT VENTRICULAR WALL MOTION: NORMAL. DOPPLER/COLOR FLOW: NORMAL. COMMENTS: 1. NORMAL LEFT VENTRICULAR SYSTOLIC FUNCTION, EJECTION FRACTION 60-65%, NORMAL WALL MOTION. 2. NORMAL DIASTOLIC FUNCTION. 3. MILD ELEVATED FILLING PRESSURE (RIGHT ATRIUM 10-15mmHg) TECHNOLOGIST: CARIE COMBS
[2024-11-13] MEDS: levoFLOXacin 750 MG TAB PO SCH (13:31)
--- NOTE | 2024-11-13 17:28 | P.PN ---
Subjective Date of Service: 11/13/24 Chief Complaint: Acute pyelonephritis Patient denies any new complaint. He has been afebrile. No fever over the past 24 hours Physical Examination - Vital Signs Temperature: 98.0 F Blood Pressure: 138/67 Pulse: 84 Respirations: 18 Pulse Ox (%): 98 - Studies Microbiology Data (last 24 hrs): 11/10/24 16:18 Blood - Blood Blood Culture Gram Stain - Final Medications List Reviewed: Yes Assessment And Plan - Plan Physical examination General: Alert and oriented x3, NAD, HEENT: Anicteric sclera Neck: Supple, no elevated JVD Heart: Heart sounds 1 and 2 normal, regular rhythm, tachycardia, no pedal edema, good capillary refill. Lungs: Clear to auscultation bilaterally, adequate breath sounds bilaterally, no rhonchi or crackles. Abdomen: Soft, nondistended, nontender, normal bowel sounds. Extremities: No tenderness, no deformity Skin: Normal skin turgor, no rash, no nodules or ulcers. Neuro: No focal motor deficit. Normal speech. Psychiatry: Normal mood, no agitation. Assessment and plan Complicated E. coli UTI Sepsis Gram-negative bacteremia Patient with persistent fever on IV Rocephin. He defervesced with IV cefepime. Urine culture growing pansensitive E. coli. Blood culture organism identification is pending. Continue IV cefepime. Discontinue IV fluid Repeat blood culture shows no growth Infectious disease Dr. Lantigua consulted to assist with outpatient antibiotic therapy. Paroxysmal atrial fibrillation Patient is currently in sinus rhythm heart. He goes in and out of A-fib. Echocardiogram is unremarkable. Continue metoprolol and Lovenox anticoagulated. Transition Lovenox to Eliquis. Cardiology Dr. Benítez input appreciated. Outpatient cardiology follow-up recommended. BPH Patient reports history of urinary retention. He states that he is supposed to follow-up with Dr. Mueller for ultrasound of his prostate as part of evaluation for prostate surgery. Continue Flomax. Patient is voiding without difficulty. Hypertension Stable Continue home antihypertensives. Anemia Monitor and transfuse for hemoglobin less than 7. DM type II Hold metformin and glimepiride Manage blood sugar with insulin sliding scale. Home dose Actos resumed Hyponatremia Resolved. Discontinue IV NS DVT prophylaxis: Eliquis. Advanced directive: Full code.
[2024-11-13] MEDS: APIXABAN 5 MG TABLET PO SCH (20:04)
[2024-11-14 06:22] LABS: Absolute Eosinophils 0.2 K/uL (0-0.5); Absolute Lymphocytes (CBC) 0.6 K/uL (0.7-4.9); Absolute Monocytes 0.4 K/uL (0.1-1.3); Absolute Neutrophil 4.8 K/uL (1.8-8.0); Basophils % 0.4 % (0-1.3); Eosinophils % 2.9 % (0-4.4); Hematocrit 28.2 % (39.6-49.0); Hemoglobin 9.5 g/dL (13.6-17.9); Lymphocytes % 10.3 % (15.3-44.8); MCH 30.6 pg (27.0-35.0); MCHC 33.8 g/dL (32.0-36.0); MCV 90.5 fL (80-100); MPV 9.4 fL (7.6-11.3); Monocytes % 7.1 % (3.3-12.3); Neutrophils % 79.3 % (41.7-73.7); Platelets 152 thou/uL (152-406); RBC Red Blood Cell Count 3.11 M/uL (4.33-5.43); Red Cell Distribution Width 13.7 % (12.1-15.2)
[2024-11-14 06:23] LABS: Anion Gap 7.9 mEq/L (5.0-15.0); Potassium 3.9 mEq/L (3.5-5.1)
--- NOTE | 2024-11-14 13:25 | P.PN ---
Date of Service: 11/14/24 Subjective: ROS: 10 point ROS as noted above, otherwise negative Physical Exam: GEN: Alert, oriented, NAD CV: Regular rate and rhythm, no edema Pulm: Nonlabored respirations on room air, clear bilaterally ABD: soft, nontender, nondistended Integumentary: No rashes Neuro: Normal speech, normal affect Problem List: VTE: Code: Full Dispo: Home Time Spent Managing Pts Care (In Minutes): 55
--- NOTE | 2024-11-14 13:31 | P.DS ---
Admission Date: 11/10/24 Discharge Date: 11/14/24 Disposition: ROUTINE DISCHARGE Discharge Condition: GOOD Reason for Admission: Acute pyelonephritis Consultations: Cardiology - Dr. Benítez ID - Dr. Lantigua Brief History of Present Illness: Patient is 69 years of age admitted with 1 week onset of sided flank pain hematuria fever chills admitted with right-sided pyelonephritis no prior history of urinary tract problems Hospital Course: Problem List: Sepsis secondary to acute pyelonephritis E. coli bacteremia Physician discharge Instructions: Patient presents with flank pain, hematuria, intermittent fevers secondary to acute pyelonephritis. Urine culture grew meyer-sensitive E. coli. Blood culture grew meyer-sensitive E. coli in 1/[address] abdomen on admission noted right renal cortical hypoenhancement and asymmetric right perinephric fat stranding, concerning for acute pyelonephritis. ID was consulted. Patient received IV cefepime while hospitalized and had improvement of his symptoms. IV cefepime was deescalate to oral levaquin and patient continued to improve. ID recommended patient complete 2 week antibiotic course. Patient is to complete 11 more days of oral Augmentin on discharge. Due to new onset afib, avoiding Fluoroquinolones Patient was feeling better, afebrile without leukocytosis, and was deemed stable for discharge. Patient reports that he is supposed to follow-up with Dr. Mueller for ultrasound of his prostate as part of evaluation for prostate surgery. During his hospitalization, he was found to be in new onset paroxysmal a-fib. Suspect new onset a-fib related to acute pyelonephritis. Echocardiogram with normal EF, normal diastolic function. Dr. Benítez (cardio) was consulted and recommended starting patient on metoprolol and eliquis Advised patient to follow up with cardiology in near future for further management. Medications: Augmentin for 11 more days Eliquis 5mg BID Metoprolol 25 mg BID recommend stopping/minimizing celebrex since starting eliquis - can further increase risk of bleeding. Patient called after discharge to inform that eliquis is too costly. New prescription sent for Xarelto. Follow up: PCP 3-5 days Cardiology 2-4 weeks Urology 2-4 weeks Please call to schedule / confirm appointments Physical Exam: GEN: Alert, NAD CV: Regular rate and rhythm, no edema Pulm: Nonlabored respirations on room air, clear bilaterally ABD: soft, nontender, nondistended Integumentary: No rashes Neuro: Normal speech, normal affect Vital Signs/Physical Exam: Temp Pulse Resp BP Pulse Ox 98.3 F 90 16 123/63 98 11/14/24 08:00 11/14/24 08:00 11/14/24 08:00 11/14/24 08:00 11/14/24 08:00 Laboratory Data at Discharge: WBC 6.00 thou/uL (4.3-10.9) 11/14/24 05:05 Hgb 9.5 g/dL (13.6-17.9) L 11/14/24 05:05 Hct 28.2 % (39.6-49.0) L 11/14/24 05:05 Plt Count 152 thou/uL (152-406) 11/14/24 05:05 PT 12.3 SECONDS (9.4-12.5) 11/10/24 16:07 INR 1.10 11/10/24 16:07 APTT 29.1 SECONDS (24.3-36.9) 11/10/24 16:07 Sodium 138 mEq/L (136-145) 11/14/24 05:05 Potassium 3.9 mEq/L (3.5-5.1) D 11/14/24 05:05 BUN 16 mg/dL (7-18) 11/14/24 05:05 Creatinine 0.96 mg/dL (0.70-1.30) 11/14/24 05:05 Glucose 130 mg/dL (74-106) H 11/14/24 05:05 Total Bilirubin 0.7 mg/dL (0.2-1.0) 11/11/24 04:54 AST 25 U/L (15-37) 11/11/24 04:54 ALT 25 U/L (16-61) 11/11/24 04:54 Alkaline Phosphatase 94 U/L (45-117) 11/11/24 04:54 Home Medications: Amlodipine [Norvasc*] 5 mg PO DAILY 04/01/19 Glimepiride 2 mg PO BIDWM 04/01/19 Liraglutide [Victoza 2-Endy] 1.8 mg SQ DAILY 04/01/19 Metformin HCl [Metformin HCl ER] 500 mg PO BID 04/01/19 Mometasone Furoate [Nasonex] 1 spray NS BID 04/01/19 Omeprazole Magnesium [Prilosec Otc] 1 tab PO DAILY 04/01/19 Ondansetron [Zofran (Odt)*] 8 mg PO Q8HR PRN 04/01/19 Aspirin 81 mg PO DAILY 11/10/24 Atorvastatin Calcium [Lipitor*] 20 mg PO BEDTIME 11/10/24 Celecoxib [Celebrex] 200 mg PO BID 11/10/24 Losartan Potassium 100 mg PO BID 11/10/24 Pioglitazone HCl/Glimepiride [Duetact 30-4 mg Tablet] 30 mg PO DAILY 11/10/24 Tamsulosin [Flomax*] 0.4 mg PO BID 11/10/24 tadalafiL [Tadalafil] 20 mg PO DAILY 11/10/24 Amox/Clavulanate [Augmentin 875-125 Tab] 1 tab PO BID 11 Days #22 tab 11/14/24 Apixaban [Eliquis] 5 mg PO BID 30 Days #60 tab 11/14/24 Metoprolol Tartrate [Lopressor*] 25 mg PO BID 30 Days #60 tab 11/14/24 Rivaroxaban [Xarelto] 20 mg PO DAILY AT SUPPER 30 Days #30 tab 11/15/24 New Medications: Amox/Clavulanate [Augmentin 875-125 Tab] 1 tab PO BID 11 Days #22 tab Apixaban [Eliquis] 5 mg PO BID 30 Days #60 tab Metoprolol Tartrate [Lopressor*] 25 mg PO BID 30 Days #60 tab Rivaroxaban [Xarelto] 20 mg PO DAILY AT SUPPER 30 Days #30 tab Physician Discharge Instructions: Physician discharge Instructions: Patient presents with flank pain, hematuria, intermittent fevers secondary to acute pyelonephritis. Urine culture grew meyer-sensitive E. coli. Blood culture grew meyer-sensitive E. coli in 1/[address] abdomen on admission noted right renal cortical hypoenhancement and asymmetric right perinephric fat stranding, concerning for acute pyelonephritis. ID was consulted. Patient received IV cefepime while hospitalized and had improvement of his symptoms. IV cefepime was deescalate to oral levaquin and patient continued to improve. ID recommended patient complete 2 week antibiotic course. Patient is to complete 11 more days of oral Augmentin on discharge. Due to new onset afib, avoiding Fluoroquinolones Patient was feeling better, afebrile without leukocytosis, and was deemed stable for discharge. Patient reports that he is supposed to follow-up with Dr. Mueller for ultrasound of his prostate as part of evaluation for prostate surgery. During his hospitalization, he was found to be in new onset paroxysmal a-fib. Suspect new onset a-fib related to acute pyelonephritis. Echocardiogram with normal EF, normal diastolic function. Dr. Benítez (cardio) was consulted and recommended starting patient on metoprolol and eliquis Advised patient to follow up with cardiology in near future for further management. Medications: Augmentin for 11 more days Eliquis 5mg BID Metoprolol 25 mg BID recommend stopping/minimizing celebrex since starting eliquis - can further increase risk of bleeding. Follow up: PCP 3-5 days Cardiology 2-4 weeks Urology 2-4 weeks Please call to schedule / confirm appointments Followup: Robert Benítez MD [ACTIVE - CAN ADMIT] - 1-2 Weeks Chip Larios MD [Primary Care Provider] - 1-2 Weeks Time spent managing pt's care (in minutes): 45
[2024-11-14 15:10] VITALS: BP 149/67; TEMP 97.7
--- NOTE | 2024-11-14 16:05 | CON ---
History Of Present Illness: This is a 69-year-old male. I was consulted for evaluation of urinary tract infection and pyelonephritis. The patient came in with high fever. The symptoms have improved significantly. He was initially treated with IV antibiotics. His culture grew E coli. I was consulted to evaluate for possible switching to oral antibiotic and sending the patient home. Past Medical History: Diabetes mellitus, hypertension, right foot reattachment, left knee surgery, gastroesophageal reflux disease. Family History: Diabetes mellitus and cancer. Social History: Nonsmoker and nondrinker. 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 Current Medications: Include Levaquin. See MARs for other medications. He was treated before with cefepime. Allergies: NO KNOWN DRUG ALLERGIES. Review of Systems: A 10-point review was performed. Physical Examination: General: This is a 69-year-old male, lying in bed, not in any acute cardiopulmonary distress. Vital Signs: Temperature 98, pulse 88, respirations 18, blood pressure 136/61. HEENT: Unremarkable. Neck: Supple. Lungs: Basal crackles. Heart: S1, S2. Regular. Abdomen: Soft, nontender. Bowel sounds present. Extremities: Trace edema. Laboratory Data: Shows WBC 6, down from 13,000, hemoglobin 9.5, platelets are 152 from 131. Chemistry shows BUN of 16, creatinine 0.9. Micro data shows E coli sensitive to quinolones. Assessment And Plan: A 69-year-old male with bacteremia and urosepsis secondary to Escherichia coli, most likely secondary to benign prostatic hypertrophy. The patient was recommended to see his urologist to address his prostate hypertrophy to decrease the recurrence of urinary tract infection and possible another episode of bacteremia. Fever has subsided. Leukocytosis has subsided. Thrombocytopenia has subsided. Anemia of chronic disease, diabetes mellitus. Continue antibiotic. Recommend Cipro for next 11 days, 500 mg twice a day. Also recommend probiotics and to return to hospital if the patient has diarrhea, nausea, vomiting. We will follow the patient closely. Thank you, Dr. Velez and Dr. Oneill for consult. IVON/YFN Voice ID: [id number] Report ID: [id number] CLAIRE
--- NOTE | 2024-11-16 12:16 | EKG ---
Test Date: 2024-11-10 Test Time: 20:07:17 Supervisor Process Testing: ALEKSEY MEASUREMENT RESULTS: Intervals: Rate: 144 [place]: QRSD: 76 QT: 280 QTc: 433 [place]: P: [place]: QRS: 39 T: 3 INTERPRETIVE STATEMENTS: Atrial fibrillation with premature ventricular or aberrantly conducted complexes Low voltage QRS Abnormal ECG Compared to ECG 11/10/2024 20:05:43 ST (T wave) deviation no longer present Electronically Signed On 11-16-24 12:13:16 DECK BUILDER by Robert Benítez
--- NOTE | 2024-11-16 12:16 | EKG ---
Test Date: 2024-11-10 Test Time: 20:05:43 Pct: ALEKSEY MEASUREMENT RESULTS: Intervals: Rate: 151 [place]: QRSD: 80 QT: 234 QTc: 370 [place]: P: [place]: QRS: 38 T: 47 INTERPRETIVE STATEMENTS: Atrial fibrillation with premature ventricular or aberrantly conducted complexes Low voltage QRS Nonspecific ST and T wave abnormality, probably digitalis effect Abnormal ECG Compared to ECG 11/10/2024 15:44:52 Ventricular premature complex(es) now present Low QRS voltage now present ST (T wave) deviation now present Sinus tachycardia no longer present Electronically Signed On 11-16-24 12:13:18 COMMISSIONS COORDINATOR by Robert Benítez
== END 2024-11-14 13:39 | disposition home or self-care (01) | DRG 872 ==
LOC: ER 14:59 → ERHOLD 18:34 → 2ND 21:11
PROVIDERS: ADMIT Internal Medicine Sleep Medicine; ATTEND Hospitalist
DX: A41.51 Sepsis due to Escherichia coli [E. coli] (principal); N10 Acute pyelonephritis; E87.1 Hypo-osmolality and hyponatremia; E11.9 Type 2 diabetes mellitus without complications; I10 Essential (primary) hypertension; N20.0 Calculus of kidney; I48.0 Paroxysmal atrial fibrillation; K21.9 Gastro-esophageal reflux disease without esophagitis; R31.9 Hematuria, unspecified; Z79.84 Long term (current) use of oral hypoglycemic drugs; Z79.899 Other long term (current) drug therapy; N40.0 Benign prostatic hyperplasia without lower urinary tract symptoms; D69.6 Thrombocytopenia, unspecified; D63.8 Anemia in other chronic diseases classified elsewhere
CPT/HCPCS: 36415; 74177; 80048; 80053; 80202; 81001; 82947; 83605; 85025; 85610; 85730; 87040; 87077; 87086; 87088; 87186; 87205; 93005; 93306; 96365; 96366; 96375; 99285; J0692; J0696; J1650; J7030; J7040; J7050; Q9967